=== PATIENT | female | born 1995 | race Caucasian/White ===

== ENCOUNTER 2018-01-25 18:42 | Emergency (ER) | payer MEDICAID ==
[~2018-01-25] VITALS: Ht 5200 cm; Wt 75.0 kg
[~2018-01-25 18:42] MED LIST: MEDR150D9 IM; VALP250C44 PO
[2018-01-25] MEDS ORDERED: CLOZ50TA PO (19:32)
[2018-01-25] MEDS ORDERED: DOCU-148 PO (19:32)
[2018-01-25] MEDS ORDERED: FLUV50TA3 PO (19:32)
[2018-01-25] MEDS ORDERED: LAMO100T89 PO (19:32)
[2018-01-25] MEDS ORDERED: TOPI100T18 PO (19:32)
[2018-01-25 20:44] LABS: URINE HCG NEGATIVE (NEG)
[2018-01-25 20:50] LABS: CLARITY,URINE CLEAR (Clear); COLOR,URINE YELLOW (Yellow); GLUCOSE, URINE NEGATIVE (Neg); KETONES,URINE NEGATIVE (Neg); LEUKOCYTE ESTERASE ,URINE NEGATIVE (Neg); NITRITES, URINE NEGATIVE (Neg); OCCULT BLOOD,URINE SMALL (Neg); PROTEIN,URINE NEGATIVE (Neg); UROBILINOGEN,URINE 0.2 E.U/dL (0.2-1.0)
[2018-01-25 20:52] LABS: UA COLLECTION TYPE CLN CATCH MIDSTREAM
[2018-01-25 20:55] LABS: URINE AMPHETAMINE SCREEN NEGATIVE (Neg); URINE BARBITUATE SCREEN NEGATIVE (Neg); URINE BENZODIAZEPINES SCREEN NEGATIVE (Neg); URINE CANNABINOID SCREEN NEGATIVE (Neg); URINE COCAINE SCREEN NEGATIVE (Neg); URINE METHADONE SCREEN NEGATIVE (Neg); URINE OPIATE SCREEN NEGATIVE (Neg); URINE PHENCYCLIDINE SCREEN NEGATIVE (Neg)
[2018-01-25 21:04] LABS: BACTERIA,URINE 2+ /HPF (Neg); MUCUS STRANDS NONE SEEN /LPF (Neg); RBC,URINE 0-2 /HPF (0-2); SQUAMOUS EPITHELIAL CELL,UR FEW /LPF (FEW); WBC,URINE 0-4 /HPF (0-4)
[2018-01-25 21:50] LABS: BASOPHILS % (AUTO) 0.1 % (0-1); EOSINOPHILS # (AUTO) 0.2 X10'3 (0-0.9); EOSINOPHILS % (AUTO) 1.3 % (0-6); HEMATOCRIT 39.2 % (35.0-45.0); HEMOGLOBIN 13.6 g/dl (12.0-16.0); LYMPHOCYTES # (AUTO) 2.9 X10'3 (1.1-4.8); LYMPHOCYTES % (AUTO) 21.5 % (21-51); MEAN CORPUSCULAR HEMOGLOBIN 31.5 PG (27.0-31.0); MEAN CORPUSCULAR HGB CONC 34.7 % (33.0-36.5); MEAN CORPUSCULAR VOLUME 90.8 FL (78-98); MONOCYTES # (AUTO) 0.9 X10'3 (0-0.9); MONOCYTES % (AUTO) 6.8 % (2-12); NEUTROPHILS # (AUTO) 9.6 X10'3 (1.8-7.7); NEUTROPHILS % (AUTO) 70.3 % (42-75); PLATELET COUNT 247 X10'3 (140-440); RED BLOOD COUNT 4.31 X10'6 (4.20-5.60); RED CELL DISTRIBUTION WIDTH 13.1 % (11.5-14.5); WHITE BLOOD COUNT 13.7 X10'3 (4.5-11.0)
[2018-01-25 22:16] LABS: ALANINE AMINOTRANSFERASE 29 U/L (12-78); ALBUMIN 3.6 G/DL (3.4-5.0); ALBUMIN/GLOBULIN RATIO 0.9 (1.1-1.5); ALKALINE PHOSPHATASE 128 IU/L (46-116); ANION GAP 12 (8-16); ASPARTATE AMINO TRANSFERASE 16 U/L (10-37); BILIRUBIN,TOTAL 0.2 MG/DL (0.1-1.0); BLOOD UREA NITROGEN 17 MG/DL (7-18); BUN/CREATININE RATIO 18.3 (6.6-38.0); CHLORIDE 108 MMOL/L (99-107); CREATININE 0.93 MG/DL (0.40-0.90); GLUCOSE 98 MG/DL (70-104); POTASSIUM 3.7 MMOL/L (3.5-5.1); SODIUM 143 MMOL/L (135-145); TOTAL CARBON DIOXIDE 22.9 MMOL/L (24-32); TOTAL PROTEIN 7.5 G/DL (6.4-8.2); eGFR 75 ML/MIN
[2018-01-25] MEDS: docusate sod 100mg capsule PO SCH (22:24)
[2018-01-25] MEDS: lamoTRIgine 100mg tablet PO SCH (22:24)
[2018-01-25] MEDS: LORazepam 1 MG tablet PO PRN (22:24)
[2018-01-25] MEDS: fluvoxamine 25 MG tablet PO SCH (22:24)
[2018-01-25] MEDS: topiramate 100mg tablet PO SCH (22:28)
[2018-01-26] MEDS: clozapine 100mg tablet PO SCH ×2 (08:46→21:12)
[2018-01-26] MEDS: lamoTRIgine 100mg tablet PO SCH ×2 (08:46→21:12)
[2018-01-26] MEDS: docusate sod 100mg capsule PO SCH ×2 (08:46→21:12)
[2018-01-26] MEDS: topiramate 100mg tablet PO SCH ×2 (08:50→21:12)
[2018-01-26] MEDS: LORazepam 1 MG tablet PO PRN (16:39)
[2018-01-26] MEDS: fluvoxamine 25 MG tablet PO SCH (21:12)
[2018-01-27] MEDS: topiramate 100mg tablet PO SCH ×2 (08:08→20:08)
[2018-01-27] MEDS: docusate sod 100mg capsule PO SCH ×2 (08:08→20:08)
[2018-01-27] MEDS: clozapine 100mg tablet PO SCH ×2 (08:08→20:07)
[2018-01-27] MEDS: lamoTRIgine 100mg tablet PO SCH ×2 (08:08→20:08)
[2018-01-27] MEDS: fluvoxamine 25 MG tablet PO SCH (20:08)
[2018-01-28] MEDS: lamoTRIgine 100mg tablet PO SCH ×2 (08:58→20:20)
[2018-01-28] MEDS: topiramate 100mg tablet PO SCH ×2 (08:58→20:20)
[2018-01-28] MEDS: docusate sod 100mg capsule PO SCH ×2 (08:58→20:20)
[2018-01-28] MEDS: clozapine 100mg tablet PO SCH ×2 (09:49→20:20)
[2018-01-28] MEDS: LORazepam 1 MG tablet PO PRN (16:50)
[2018-01-28] MEDS: fluvoxamine 25 MG tablet PO SCH (20:20)
[2018-01-29] MEDS: docusate sod 100mg capsule PO SCH ×2 (08:39→20:52)
[2018-01-29] MEDS: topiramate 100mg tablet PO SCH ×2 (08:39→20:53)
[2018-01-29] MEDS: clozapine 100mg tablet PO SCH ×2 (08:39→20:52)
[2018-01-29] MEDS: lamoTRIgine 100mg tablet PO SCH ×2 (08:40→20:52)
[2018-01-29] MEDS: fluvoxamine 25 MG tablet PO SCH (20:53)
[2018-01-30] MEDS: topiramate 100mg tablet PO SCH ×2 (08:41→20:42)
[2018-01-30] MEDS: clozapine 100mg tablet PO SCH ×2 (08:41→20:41)
[2018-01-30] MEDS: docusate sod 100mg capsule PO SCH ×2 (08:41→20:41)
[2018-01-30] MEDS: lamoTRIgine 100mg tablet PO SCH ×2 (08:41→20:41)
[2018-01-30] MEDS: fluvoxamine 25 MG tablet PO SCH (20:42)
[2018-01-31] MEDS: docusate sod 100mg capsule PO SCH ×2 (08:22→20:31)
[2018-01-31] MEDS: clozapine 100mg tablet PO SCH ×2 (08:22→20:50)
[2018-01-31] MEDS: lamoTRIgine 100mg tablet PO SCH ×2 (08:22→20:31)
[2018-01-31] MEDS: topiramate 100mg tablet PO SCH ×2 (08:22→20:51)
[2018-01-31] MEDS: LORazepam 1 MG tablet PO PRN (16:35)
[2018-01-31] MEDS: fluvoxamine 25 MG tablet PO SCH (20:31)
[2018-02-01] MEDS: docusate sod 100mg capsule PO SCH ×2 (08:35→19:43)
[2018-02-01] MEDS: lamoTRIgine 100mg tablet PO SCH ×2 (08:35→19:43)
[2018-02-01] MEDS: topiramate 100mg tablet PO SCH ×2 (08:35→19:44)
[2018-02-01] MEDS: clozapine 100mg tablet PO SCH ×2 (08:35→19:43)
[2018-02-01] MEDS: LORazepam 1 MG tablet PO PRN (13:10)
[2018-02-01 16:44] VITALS: BP 118/80
[2018-02-01] MEDS: fluvoxamine 25 MG tablet PO SCH (19:44)
== END 2018-02-01 21:44 ==
LOC: ER 18:43
DX: R45.851 Suicidal ideations (principal); F31.9 Bipolar disorder, unspecified; Z56.0 Unemployment, unspecified; Z79.899 Other long term (current) drug therapy
CPT/HCPCS: 36415; 80053; 80305; 81001; 81025; 84443; 85025; 99285

== ENCOUNTER 2020-01-05 13:24 | Inpatient (IN) | payer MEDICAID ==
[~2020-01-05] VITALS: Ht 160 cm; Wt 70.8 kg
[~2020-01-05 13:24] MED LIST changes: +CLOZ50TA PO; +DOCU-148 PO; +FLUV50TA3 PO; +LAMO100T PO; -MEDR150D9 IM; +TOP100T PO; -VALP250C44 PO
[2020-01-05] MEDS ORDERED: magnesium hydroxide 30ml (MOM) UD suspension PO PRN (17:35)
[2020-01-05] MEDS ORDERED: acetaminophen 325mg tablet PO PRN ×2 (17:35)
[2020-01-05] MEDS ORDERED: traZODone 50mg tablet PO PRN (17:35)
[2020-01-05] MEDS ORDERED: loperamide 2mg capsule PO PRN (17:35)
[2020-01-05] MEDS ORDERED: mag hydrox/Alum hydrox/simeth 30ml oral suspension PO PRN (17:35)
[2020-01-06] MEDS ORDERED: LORazepam 1 MG tablet PO PRN (16:35)
[2020-01-06] MEDS ORDERED: traZODone 50mg tablet PO PRN (16:35)
[2020-01-06] MEDS ORDERED: loperamide 2mg capsule PO PRN (16:35)
[2020-01-06 17:34] VITALS: BP 120/77
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
[2020-01-06 20:00] VITALS: BP 125/80
[2020-01-06] MEDS ORDERED: LEVO50TA PO (20:18)
[2020-01-06] MEDS ORDERED: OLAN10TA19 PO (20:18)
[2020-01-06] MEDS ORDERED: BUPR-94 PO (20:18)
[2020-01-06] MEDS ORDERED: OXYB5TAB16 PO (20:18)
[2020-01-06] MEDS ORDERED: BUSP5TAB3 PO (20:19)
[2020-01-06] MEDS ORDERED: IBUP-1984 PO (20:19)
[2020-01-06] MEDS ORDERED: LAMO200T10 PO (20:19)
[2020-01-06] MEDS ORDERED: CHOL200077 PO (20:19)
[2020-01-06] MEDS ORDERED: CLOZ100T31 PO ×2 (20:19)
[2020-01-06] MEDS ORDERED: buPROPion SR 150mg tablet PO SCH (20:42)
[2020-01-06] MEDS ORDERED: olanzapine 10mg tablet PO SCH (21:00)
[2020-01-06] MEDS ORDERED: clozapine 100mg tablet PO SCH (21:00)
[2020-01-06] MEDS ORDERED: lamoTRIgine 100mg tablet PO SCH (21:14)
[2020-01-06] MEDS ORDERED: OLAN10TA3 PO (21:27)
[2020-01-06] MEDS ORDERED: CLOZ100T PO (21:27)
[2020-01-06] MEDS ORDERED: TRAZ-251 PO (21:27)
[2020-01-06] MEDS ORDERED: OLAN15TA3 PO (21:27)
[2020-01-06] MEDS ORDERED: CLON-528 PO (21:27)
[2020-01-06] MEDS ORDERED: CITA20TA19 PO (21:27)
[2020-01-06] MEDS ORDERED: traZODone 50mg tablet PO SCH (21:54)
[2020-01-06] MEDS: topiramate 100mg tablet PO SCH (23:04)
[2020-01-06] MEDS: busPIRone 5mg tablet PO SCH (23:05)
[2020-01-06] MEDS: oxybutynin 5mg tablet PO SCH (23:05)
[2020-01-06] MEDS: clozapine 100mg tablet PO SCH (23:05)
[2020-01-06] MEDS: olanzapine 10mg tablet PO SCH (23:06)
[2020-01-06] MEDS: clonazePAM 0.5mg tablet PO SCH (23:06)
[2020-01-06] MEDS: citalopram 20mg tablet PO SCH (23:06)
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
[2020-01-07] MEDS: ibuprofen tablet 400 MG TABLET PO PRN (03:43)
[2020-01-07 07:09] LABS: CHOLESTEROL 135 MG/DL (0-200); HDL CHOLESTEROL 34 MG/DL (35-60); LDL CHOLESTEROL 96 MG/DL (50-100); TRIGLYCERIDES 66 MG/DL (20-135)
[2020-01-07 07:11] LABS: HEMOGLOBIN A1C 4.8 % (4.5-6.2)
[2020-01-07] MEDS: vitamin D (cholecalciferol) 1,000 unit tablet PO SCH (07:42)
[2020-01-07] MEDS: levoTHYROXINE 25mcg tablet PO SCH (07:42)
[2020-01-07] MEDS: topiramate 100mg tablet PO SCH (07:42)
[2020-01-07] MEDS: clonazePAM 0.5mg tablet PO SCH ×2 (07:42→21:32)
[2020-01-07] MEDS: busPIRone 5mg tablet PO SCH ×3 (07:42→21:33)
[2020-01-07] MEDS: docusate sod 100mg capsule PO SCH ×2 (07:42→21:33)
[2020-01-07] MEDS: lamoTRIgine 100mg tablet PO SCH ×2 (07:43→21:33)
[2020-01-07 08:00] VITALS: BP 112/64
[2020-01-07] MEDS ORDERED: QUEtiapine 25mg tablet PO SCH (08:00)
[2020-01-07] MEDS ORDERED: olanzapine 10mg tablet PO SCH (08:00)
[2020-01-07] MEDS ORDERED: clozapine 100mg tablet PO SCH (08:00)
[2020-01-07] MEDS ORDERED: pneumococcal 23-VAL P-sac vacc 25 mcg/0.5ml vial IMVAC ONE (10:00)
[2020-01-07] MEDS ORDERED: NICOTINE POLACRILEX 4 MG LOZENGE BC PRN (11:55)
[2020-01-07] MEDS ORDERED: nicotine 21mg patch - 24 hr TD ONE (12:00)
[2020-01-07] MEDS ORDERED: benztropine 1mg tablet PO ONE (12:00)
[2020-01-07] MEDS: clozapine 25mg tablet PO SCH ×2 (12:31→17:16)
[2020-01-07] MEDS: NICOTINE POLACRILEX 2 MG LOZENGE BC PRN ×2 (15:00→21:34)
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
--- NOTE | 2020-01-07 17:08 | NUR ---
Assessment Met w/pt engaged pt in completing psycho-social & activity assessments. Pt signed MELANIE, GEORGIE (#[id number]). Lola Galvan, CENTRIFUGAL CHILLER TECHNICIAN Addendum: 01/07/20 at 1709 by Lola Galvan SS Amended: Links added.
[2020-01-07] MEDS: LORazepam 1 MG tablet PO PRN (18:15)
[2020-01-07 19:00] VITALS: BP 127/69
[2020-01-07] MEDS: citalopram 20mg tablet PO SCH (21:32)
[2020-01-07] MEDS: clozapine 100mg tablet PO SCH (21:33)
[2020-01-07] MEDS: olanzapine 10mg tablet PO SCH (21:33)
[2020-01-07] MEDS: benztropine 1mg tablet PO SCH (21:33)
[2020-01-07] MEDS: oxybutynin 5mg tablet PO SCH (21:34)
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
[2020-01-08 06:51] LABS: BASOPHILS % (AUTO) 0.2 % (0-1); EOSINOPHILS % (AUTO) 0.1 % (0-6); HEMATOCRIT 36.9 % (35.0-45.0); HEMOGLOBIN 12.8 g/dl (12.0-16.0); LYMPHOCYTES # (AUTO) 2.6 X10'3 (1.1-4.8); LYMPHOCYTES % (AUTO) 19.7 % (21-51); MEAN CORPUSCULAR HEMOGLOBIN 32.2 PG (27.0-31.0); MEAN CORPUSCULAR HGB CONC 34.6 g/dL (33.0-36.5); MEAN CORPUSCULAR VOLUME 93.1 FL (78-98); MEAN PLATELET VOLUME 7.4 FL (7.4-10.4); MONOCYTES % (AUTO) 7.4 % (2-12); NEUTROPHILS # (AUTO) 9.8 X10'3 (1.8-7.7); NEUTROPHILS % (AUTO) 72.6 % (42-75); PLATELET COUNT 249 X10'3 (140-440); RED BLOOD COUNT 3.97 X10'6 (4.20-5.60); RED CELL DISTRIBUTION WIDTH 12.7 % (11.5-14.5); WHITE BLOOD COUNT 13.4 X10'3 (4.5-11.0)
[2020-01-08 07:05] LABS: ALANINE AMINOTRANSFERASE 23 U/L (12-78); ALBUMIN 3.5 G/DL (3.4-5.0); ALBUMIN/GLOBULIN RATIO 0.9 (1.1-1.5); ALKALINE PHOSPHATASE 85 IU/L (46-116); ANION GAP 11 (8-16); ASPARTATE AMINO TRANSFERASE 16 U/L (10-37); BILIRUBIN,TOTAL 0.2 MG/DL (0.1-1.0); BLOOD UREA NITROGEN 14 MG/DL (7-18); BUN/CREATININE RATIO 15.7 (6.6-38.0); CHLORIDE 108 MMOL/L (99-107); CREATININE 0.89 MG/DL (0.40-0.90); GLUCOSE 97 MG/DL (70-104); POTASSIUM 3.7 MMOL/L (3.5-5.1); SODIUM 143 MMOL/L (135-145); TOTAL CARBON DIOXIDE 24.2 MMOL/L (24-32); TOTAL PROTEIN 7.3 G/DL (6.4-8.2); eGFR 77 ML/MIN
[2020-01-08] MEDS: benztropine 1mg tablet PO SCH ×2 (07:09→20:45)
[2020-01-08] MEDS: lamoTRIgine 100mg tablet PO SCH ×2 (07:09→20:46)
[2020-01-08] MEDS: levoTHYROXINE 25mcg tablet PO SCH (07:09)
[2020-01-08] MEDS: clonazePAM 0.5mg tablet PO SCH ×2 (07:09→20:46)
[2020-01-08] MEDS: clozapine 25mg tablet PO SCH ×3 (07:09→17:07)
[2020-01-08] MEDS: busPIRone 5mg tablet PO SCH ×3 (07:10→20:45)
[2020-01-08] MEDS: vitamin D (cholecalciferol) 1,000 unit tablet PO SCH (07:10)
[2020-01-08] MEDS: magnesium hydroxide 30ml (MOM) UD suspension PO PRN (07:10)
[2020-01-08] MEDS: docusate sod 100mg capsule PO SCH ×2 (07:10→20:45)
[2020-01-08] MEDS: acetaminophen 325mg tablet PO PRN (07:11)
[2020-01-08] MEDS: nicotine 21mg patch - 24 hr TD SCH (07:32)
[2020-01-08 08:00] VITALS: BP 116/67
[2020-01-08] MEDS: NICOTINE POLACRILEX 2 MG LOZENGE BC PRN (13:08)
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
[2020-01-08 19:00] VITALS: BP 118/74
[2020-01-08] MEDS: ibuprofen tablet 400 MG TABLET PO PRN (19:04)
[2020-01-08] MEDS: oxybutynin 5mg tablet PO SCH (20:45)
[2020-01-08] MEDS: olanzapine 10mg tablet PO SCH (20:45)
[2020-01-08] MEDS: citalopram 20mg tablet PO SCH (20:46)
[2020-01-08] MEDS: clozapine 100mg tablet PO SCH (20:48)
--- NOTE | 2020-01-08 21:06 | NUR ---
Nicotine patch removed per pt request r/t nausea. She asked patch be discontinued.
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
[2020-01-09] MEDS: ibuprofen tablet 400 MG TABLET PO PRN (05:51)
[2020-01-09 07:44] VITALS: BP 120/72
[2020-01-09] MEDS: nicotine 21mg patch - 24 hr TD SCH (08:00)
[2020-01-09] MEDS: magnesium hydroxide 30ml (MOM) UD suspension PO PRN (08:03)
[2020-01-09] MEDS: clozapine 25mg tablet PO SCH ×3 (08:04→17:58)
[2020-01-09] MEDS: benztropine 1mg tablet PO SCH ×2 (08:04→20:26)
[2020-01-09] MEDS: levoTHYROXINE 25mcg tablet PO SCH (08:04)
[2020-01-09] MEDS: lamoTRIgine 100mg tablet PO SCH ×2 (08:04→20:27)
[2020-01-09] MEDS: vitamin D (cholecalciferol) 1,000 unit tablet PO SCH (08:04)
[2020-01-09] MEDS: clonazePAM 0.5mg tablet PO SCH ×2 (08:04→20:27)
[2020-01-09] MEDS: busPIRone 5mg tablet PO SCH ×3 (08:04→20:27)
[2020-01-09] MEDS: docusate sod 100mg capsule PO SCH ×2 (08:04→20:27)
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
[2020-01-09 19:00] VITALS: BP 129/82
[2020-01-09] MEDS: acetaminophen 325mg tablet PO PRN (19:18)
[2020-01-09] MEDS: oseltamivir phos 75mg capsule PO SCH (20:26)
[2020-01-09] MEDS: olanzapine 10mg tablet PO SCH (20:26)
[2020-01-09] MEDS: clozapine 100mg tablet PO SCH (20:26)
[2020-01-09] MEDS: oxybutynin 5mg tablet PO SCH (20:27)
[2020-01-09] MEDS: citalopram 20mg tablet PO SCH (20:27)
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
[2020-01-10] MEDS: acetaminophen 325mg tablet PO PRN ×2 (05:46→21:13)
[2020-01-10] MEDS: lamoTRIgine 100mg tablet PO SCH ×2 (07:40→20:25)
[2020-01-10] MEDS: clonazePAM 0.5mg tablet PO SCH ×2 (07:40→20:23)
[2020-01-10] MEDS: docusate sod 100mg capsule PO SCH ×2 (07:40→20:22)
[2020-01-10] MEDS: vitamin D (cholecalciferol) 1,000 unit tablet PO SCH (07:40)
[2020-01-10] MEDS: oseltamivir phos 75mg capsule PO SCH ×2 (07:40→20:23)
[2020-01-10] MEDS: busPIRone 5mg tablet PO SCH ×3 (07:41→20:23)
[2020-01-10] MEDS: benztropine 1mg tablet PO SCH ×2 (07:41→20:22)
[2020-01-10] MEDS: clozapine 25mg tablet PO SCH ×3 (07:41→17:51)
[2020-01-10] MEDS: levoTHYROXINE 25mcg tablet PO SCH (07:42)
[2020-01-10 08:00] VITALS: BP 111/72
[2020-01-10] MEDS: nicotine 21mg patch - 24 hr TD SCH (08:00)
[2020-01-10] MEDS: LORazepam 1 MG tablet PO PRN (11:30)
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
[2020-01-10] MEDS ORDERED: magnesium citrate 296ml oral solution PO ONE (16:55)
[2020-01-10] MEDS: clozapine 100mg tablet PO SCH (20:22)
[2020-01-10] MEDS: citalopram 20mg tablet PO SCH (20:23)
[2020-01-10] MEDS: olanzapine 10mg tablet PO SCH (20:24)
[2020-01-10] MEDS: oxybutynin 5mg tablet PO SCH (20:25)
[2020-01-10 20:52] VITALS: BP 126/84
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
[2020-01-11] MEDS: acetaminophen 325mg tablet PO PRN ×2 (05:03→08:14)
[2020-01-11 07:54] VITALS: BP 121/73
[2020-01-11] MEDS: nicotine 21mg patch - 24 hr TD SCH (08:00)
[2020-01-11] MEDS: benztropine 1mg tablet PO SCH ×2 (08:05→20:48)
[2020-01-11] MEDS: clonazePAM 0.5mg tablet PO SCH ×2 (08:05→20:48)
[2020-01-11] MEDS: clozapine 25mg tablet PO SCH ×3 (08:05→17:00)
[2020-01-11] MEDS: docusate sod 100mg capsule PO SCH ×2 (08:05→20:48)
[2020-01-11] MEDS: busPIRone 5mg tablet PO SCH ×3 (08:05→20:49)
[2020-01-11] MEDS: vitamin D (cholecalciferol) 1,000 unit tablet PO SCH (08:06)
[2020-01-11] MEDS: levoTHYROXINE 25mcg tablet PO SCH (08:06)
[2020-01-11] MEDS: oseltamivir phos 75mg capsule PO SCH ×2 (08:06→20:49)
[2020-01-11] MEDS: lamoTRIgine 100mg tablet PO SCH ×2 (08:06→20:50)
--- NOTE | 2020-01-11 10:45 | NUR ---
DCP-Placement Presenting Issues: Pt lost placement @ [facility] last week, waiting for new placement. Interventions: SS had t/c with [facility] Patient Anesthesiologist Attending, Gabriela Kim per t/c SS faxed packet to [facility] office to facilitate placement services, [facility] are planning to provide referrals to [facility]. Plan: will continue to collaborate with [facility] to coordinate DCP for pt. Lola Galvan LCSW Addendum: 01/11/20 at 1054 by Lola Galvan Amended: Links added.
--- NOTE | 2020-01-11 15:01 | NUR ---
Initial: Pt admit w/ schizoaffective disorder from care facility. Hx LPS conserved per EMR. Positive for influenza A. PO at least 75% avg regular diet meeting needs. LBM 01/07. No nutrition concerns at this time. Will continue to monitor. Rec: 1. continue regular diet 2. bowel care as needed 3. wt per rx Addendum: 01/11/20 at [address] Amended: Links added.
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
[2020-01-11] MEDS ORDERED: magnesium citrate 296ml oral solution PO ONE (18:10)
[2020-01-11 20:27] VITALS: BP 128/79
[2020-01-11] MEDS: citalopram 20mg tablet PO SCH (20:49)
[2020-01-11] MEDS: olanzapine 10mg tablet PO SCH (20:50)
[2020-01-11] MEDS: oxybutynin 5mg tablet PO SCH (20:50)
[2020-01-11] MEDS: clozapine 100mg tablet PO SCH (20:50)
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
[2020-01-12] MEDS: acetaminophen 325mg tablet PO PRN ×2 (05:47→16:37)
[2020-01-12 08:00] VITALS: BP 96/57
[2020-01-12] MEDS: nicotine 21mg patch - 24 hr TD SCH (08:00)
[2020-01-12] MEDS: levoTHYROXINE 25mcg tablet PO SCH (08:04)
[2020-01-12] MEDS: clozapine 25mg tablet PO SCH ×3 (08:04→17:57)
[2020-01-12] MEDS: docusate sod 100mg capsule PO SCH ×2 (08:04→20:31)
[2020-01-12] MEDS: benztropine 1mg tablet PO SCH ×2 (08:04→20:30)
[2020-01-12] MEDS: clonazePAM 0.5mg tablet PO SCH ×2 (08:04→20:30)
[2020-01-12] MEDS: oseltamivir phos 75mg capsule PO SCH ×2 (08:04→20:27)
[2020-01-12] MEDS: lamoTRIgine 100mg tablet PO SCH ×2 (08:04→20:31)
[2020-01-12] MEDS: busPIRone 5mg tablet PO SCH ×3 (08:05→20:30)
[2020-01-12] MEDS: vitamin D (cholecalciferol) 1,000 unit tablet PO SCH (08:05)
[2020-01-12] MEDS ORDERED: bisacodyl 5mg tablet.DR PO ONE (09:10)
--- NOTE | 2020-01-12 09:18 | NUR ---
Late Note for contact made on 01/11/20 1:1-Distress Tolerance Presenting Issues: Pt tested positive for Influenza A over the weekend and is now in isolation. Pt has poor impulse management which is exacerbated by low tolerance for distress and poor emotional regulation. Interventions: SS met w/pt @ bedside, provided 1:1 interventions via DBT Distress Tolerance Strategies to encourage & support pt's verbalizing & processing her thoughts & emotions associated with hospitalization, isolation & conservatorship. Per session, pt verbalized her thoughts associated with being in isolation, difficulties getting off of conservatorship; pt talked about missing her family (dad & sister-living @ [facility]), pt has not seen them for sometime now. Pt also disclosed feeling disappointed with herself because "I can't seem to get better". SS engaged pt in defining "better", pt's reports, "I'd be off conservatorship" however, pt has limited understanding of how to support herself on her own. SS validated & normalized pt's emotional experiences and engaged pt in taking an inventory of her current coping skills, pt acknowledged that she has a stress ball which helps when she feels angry & frustrated with others, slime which helps when she feels upset with herself, pt also reports that coloring and drawing helps her head to quiet down and help her not think about problems too much, "but I don't have the art or coloring books now". Per session pt reports feeling better about her current situation and is ok about conservatorship for now. SS provided some mandala coloring pages & crayon. Plan: SS will continue to provide 1:1 psychotherapeutic support to increase pt's tolerance for daily distress. Lola Galvan LCSW Addendum: 01/12/20 at 1027 by Lola COUCH Amended: Links added.
--- NOTE | 2020-01-12 10:38 | NUR ---
1:1-CBT Presenting Issues: Pt's still in isolation undergoing treatment for Influenza; pt is normally very social and does not isolate herself. Interventions: SS met w/pt and engaged pt in CBT interventions to assess pt's stress level. Per session, pt reports that she's bored but that she understands that the isolation is only temporary. Pt has been coloring the mandSoundHound pages SS provided yesterday, pt requested for additional art materials. Per session, pt appears to be adjusting to isolation well at this time, utilizing stress relief tools & engaging to in coloring to distract her thoughts. Plan: SS will continue to provide 1:1 support. Lola Galvan LCSW Addendum: 01/12/20 at 1135 by Lola Galvan Amended: Links added.
--- NOTE | 2020-01-12 11:54 | NUR ---
CM-Placement Presenting Issues: Pt's [facility] placement [facility]. Interventions: SS had t/c with [facility] office to get update re pt's placement services. Per t/c, pt's packet sent to [facility]. Plan: SS will continue to engage [facility] in dcp activities. Lola Galvan PARTITION ASSEMBLER Addendum: 01/12/20 at 1203 by Lola Galvan Amended: Links added.
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
[2020-01-12 19:48] VITALS: BP 141/80
[2020-01-12] MEDS: olanzapine 10mg tablet PO SCH (20:28)
[2020-01-12] MEDS: clozapine 100mg tablet PO SCH (20:30)
[2020-01-12] MEDS: oxybutynin 5mg tablet PO SCH (20:31)
[2020-01-12] MEDS: citalopram 20mg tablet PO SCH (20:32)
[2020-01-12] MEDS: bisacodyl 10mg suppository rectal RC PRN (21:09)
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
[2020-01-13] MEDS: nicotine 21mg patch - 24 hr TD SCH (08:00)
[2020-01-13] MEDS: lamoTRIgine 100mg tablet PO SCH ×2 (08:20→20:31)
[2020-01-13] MEDS: clozapine 25mg tablet PO SCH ×3 (08:20→17:33)
[2020-01-13] MEDS: benztropine 1mg tablet PO SCH ×2 (08:21→20:31)
[2020-01-13] MEDS: oseltamivir phos 75mg capsule PO SCH ×2 (08:21→20:30)
[2020-01-13] MEDS: levoTHYROXINE 25mcg tablet PO SCH (08:21)
[2020-01-13] MEDS: vitamin D (cholecalciferol) 1,000 unit tablet PO SCH (08:21)
[2020-01-13] MEDS: docusate sod 100mg capsule PO SCH ×2 (08:22→20:31)
[2020-01-13] MEDS: busPIRone 5mg tablet PO SCH ×3 (08:22→20:32)
[2020-01-13] MEDS: clonazePAM 0.5mg tablet PO SCH ×2 (08:22→20:28)
[2020-01-13 08:49] VITALS: BP 98/60
[2020-01-13] MEDS: acetaminophen 325mg tablet PO PRN (14:18)
--- NOTE | 2020-01-13 14:29 | NUR ---
1:1-CBT Presenting Issues: Pt's been in isolation due to +Influenza, has lost placement in [place] due poor emotional regulation when pt encounter experiences that upsets her. Interventions: SS met w/pt @ bedside, engaged her in CBT activities to review & practice adaptive behavioral coping skills & to process her frustration due to having to stay in her room. Pt expressed desire for placement @ [facility], SS engaged pt in discussion to identify the challenges of her being able to maintain placement and what she would do differently today if presented with a similar situation. Pt also verbalize feeling bored, and wants to engage in some art work, SS provide some blank paper & water colors for pt to use. Plan: 1:1 to continue to increase pt's capacity to tolerate daily distress. Lola Galvan LCSW Addendum: 01/13/20 at 1528 by Lola COUCH Amended: Links added.
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
[2020-01-13 19:19] VITALS: BP_SYST 117; BP_SYST 139; BP_DIAS 64; BP_DIAS 79
[2020-01-13] MEDS: clozapine 100mg tablet PO SCH (20:28)
[2020-01-13] MEDS: olanzapine 10mg tablet PO SCH (20:30)
[2020-01-13] MEDS: citalopram 20mg tablet PO SCH (20:31)
[2020-01-13] MEDS: oxybutynin 5mg tablet PO SCH (20:34)
[2020-01-13 21:32] LABS: URINE HCG NEGATIVE (NEG)
--- NOTE | 2020-01-13 22:19 | NUR ---
Pt reports still no BM, Lana RN assessed pt and pts abdomen is firm and slightly distended, bowel sounds were hypoactive, pt denies nausea or abdominal pain, contacted Dr Loo, verbal order to do digital exam to assess for impaction and if patient is gave order to manually disimpact if needed, also order for glycerin suppository given.
--- NOTE | 2020-01-13 22:41 | NUR ---
Digital exam done, no stool felt, glycerine suppository administered, will continue to monitor.
[2020-01-13] MEDS: glycerin ADULT rectal suppository RC PRN (22:43)
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
[2020-01-14] MEDS: busPIRone 5mg tablet PO SCH ×3 (07:54→20:59)
[2020-01-14] MEDS: oseltamivir phos 75mg capsule PO SCH ×2 (07:54→20:59)
[2020-01-14] MEDS: benztropine 1mg tablet PO SCH ×2 (07:54→20:59)
[2020-01-14] MEDS: clonazePAM 0.5mg tablet PO SCH ×2 (07:54→20:59)
[2020-01-14] MEDS: docusate sod 100mg capsule PO SCH ×2 (07:54→20:59)
[2020-01-14] MEDS: clozapine 25mg tablet PO SCH ×3 (07:54→16:59)
[2020-01-14] MEDS: lamoTRIgine 100mg tablet PO SCH ×2 (07:54→20:59)
[2020-01-14] MEDS: nicotine 21mg patch - 24 hr TD SCH (07:55)
[2020-01-14] MEDS: vitamin D (cholecalciferol) 1,000 unit tablet PO SCH (07:55)
[2020-01-14] MEDS: levoTHYROXINE 25mcg tablet PO SCH (07:55)
[2020-01-14 08:12] VITALS: BP 105/66
--- NOTE | 2020-01-14 15:58 | NUR ---
1:1-CBT Presenting Issues: Pt's in isolation and receiving medication treatment for Influenza A. Pt is handling isolation well, is reported to be bored and restless but accepts redirections well. Pt struggles to regulate emotional responses in the moment when she experiences emotional flooding, in such situations pt often react via fight/flight, these Interventions: SS met w/pt @ bedside, provided support via CBT and encouraged pt to practice adaptive behavioral coping strategies. SS also provided additional art tools to support pt in coping with having to be in isolation. Plan: SS will continue 1:1 support. Lola Galvan LCSW Addendum: 01/14/20 at 1631 by Lola Galvan Amended: Links added.
[2020-01-14] MEDS: acetaminophen 325mg tablet PO PRN ×2 (16:00→19:55)
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
[2020-01-14 20:05] VITALS: BP 118/78
[2020-01-14] MEDS: olanzapine 10mg tablet PO SCH (20:59)
[2020-01-14] MEDS: clozapine 100mg tablet PO SCH (20:59)
[2020-01-14] MEDS: citalopram 20mg tablet PO SCH (20:59)
[2020-01-14] MEDS: oxybutynin 5mg tablet PO SCH (20:59)
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
[2020-01-15] MEDS: acetaminophen 325mg tablet PO PRN ×3 (03:42→18:59)
[2020-01-15 07:23] VITALS: BP 136/80
[2020-01-15] MEDS: docusate sod 100mg capsule PO SCH ×2 (07:33→20:52)
[2020-01-15] MEDS: lamoTRIgine 100mg tablet PO SCH ×2 (07:33→20:52)
[2020-01-15] MEDS: clozapine 25mg tablet PO SCH ×3 (07:33→17:12)
[2020-01-15] MEDS: oseltamivir phos 75mg capsule PO SCH ×2 (07:33→20:52)
[2020-01-15] MEDS: busPIRone 5mg tablet PO SCH ×3 (07:33→20:52)
[2020-01-15] MEDS: vitamin D (cholecalciferol) 1,000 unit tablet PO SCH (07:34)
[2020-01-15] MEDS: benztropine 1mg tablet PO SCH ×2 (07:34→20:52)
[2020-01-15] MEDS: clonazePAM 0.5mg tablet PO SCH ×2 (07:34→20:52)
[2020-01-15] MEDS: nicotine 21mg patch - 24 hr TD SCH (07:34)
[2020-01-15] MEDS: levoTHYROXINE 25mcg tablet PO SCH (07:44)
[2020-01-15] MEDS: lactulose 20gm/30ml cup PO PRN (14:33)
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
[2020-01-15 19:36] VITALS: BP 125/77
[2020-01-15] MEDS: olanzapine 10mg tablet PO SCH (20:51)
[2020-01-15] MEDS: oxybutynin 5mg tablet PO SCH (20:52)
[2020-01-15] MEDS: citalopram 20mg tablet PO SCH (20:52)
[2020-01-15] MEDS: clozapine 100mg tablet PO SCH (20:52)
[2020-01-15] MEDS: magnesium hydroxide 30ml (MOM) UD suspension PO PRN (21:33)
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
[2020-01-16] MEDS: ibuprofen tablet 400 MG TABLET PO PRN ×3 (02:11→22:37)
[2020-01-16] MEDS: nicotine 21mg patch - 24 hr TD SCH (08:03)
[2020-01-16] MEDS: busPIRone 5mg tablet PO SCH ×3 (08:04→21:02)
[2020-01-16] MEDS: docusate sod 100mg capsule PO SCH (08:04)
[2020-01-16] MEDS: benztropine 1mg tablet PO SCH ×2 (08:04→21:01)
[2020-01-16] MEDS: oseltamivir phos 75mg capsule PO SCH ×2 (08:04→21:01)
[2020-01-16] MEDS: levoTHYROXINE 25mcg tablet PO SCH (08:04)
[2020-01-16] MEDS: lamoTRIgine 100mg tablet PO SCH ×2 (08:04→21:01)
[2020-01-16] MEDS: vitamin D (cholecalciferol) 1,000 unit tablet PO SCH (08:04)
[2020-01-16] MEDS: clonazePAM 0.5mg tablet PO SCH ×2 (08:04→21:01)
[2020-01-16] MEDS: clozapine 25mg tablet PO SCH ×3 (08:05→16:21)
[2020-01-16] MEDS: lactulose 20gm/30ml cup PO PRN (08:05)
[2020-01-16 08:50] VITALS: BP 114/73
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
[2020-01-16] MEDS ORDERED: magnesium citrate 296ml oral solution PO ONE ×2 (12:05→19:15)
[2020-01-16] MEDS: glycerin ADULT rectal suppository RC PRN (13:33)
[2020-01-16] MEDS: bisacodyl 10mg suppository rectal RC PRN (13:34)
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
[2020-01-16] MEDS: acetaminophen 325mg tablet PO PRN (18:04)
[2020-01-16 19:41] VITALS: BP 131/79
[2020-01-16] MEDS: docusate sod 250mg capsule PO SCH (21:01)
[2020-01-16] MEDS: sennosides/docusate sodium tablet PO SCH (21:01)
[2020-01-16] MEDS: citalopram 20mg tablet PO SCH (21:01)
[2020-01-16] MEDS: clozapine 100mg tablet PO SCH (21:02)
[2020-01-16] MEDS: olanzapine 10mg tablet PO SCH (21:02)
[2020-01-16] MEDS: oxybutynin 5mg tablet PO SCH (21:02)
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
[2020-01-17] MEDS: ibuprofen tablet 400 MG TABLET PO PRN ×3 (05:51→20:40)
[2020-01-17 07:38] VITALS: BP 98/52
[2020-01-17] MEDS: vitamin D (cholecalciferol) 1,000 unit tablet PO SCH (07:49)
[2020-01-17] MEDS: docusate sod 250mg capsule PO SCH ×2 (07:49→20:32)
[2020-01-17] MEDS: levoTHYROXINE 25mcg tablet PO SCH (07:49)
[2020-01-17] MEDS: clonazePAM 0.5mg tablet PO SCH ×2 (07:49→20:32)
[2020-01-17] MEDS: lamoTRIgine 100mg tablet PO SCH ×2 (07:49→20:34)
[2020-01-17] MEDS: busPIRone 5mg tablet PO SCH ×3 (07:50→20:33)
[2020-01-17] MEDS: sennosides/docusate sodium tablet PO SCH ×2 (07:50→20:32)
[2020-01-17] MEDS: benztropine 1mg tablet PO SCH ×2 (07:51→20:32)
[2020-01-17] MEDS: clozapine 25mg tablet PO SCH ×3 (07:52→17:09)
[2020-01-17] MEDS: nicotine 21mg patch - 24 hr TD SCH (07:52)
[2020-01-17] MEDS: acetaminophen 325mg tablet PO PRN ×2 (09:16→17:04)
--- NOTE | 2020-01-17 10:30 | NUR ---
Reassessment: Pt PO occasional fluctuation mainly 75-100% avg meals meeting needs. Documented as moderate BM and constipated w/ prior LBM 01/07 though no accurate documentation hx. WHIZZER note reports constipation w/ significant colonic constipation per KUB; pt s/p mag citrate 01/15 receiving routine senna, colace, and PRN: dulcolax, MoM, and lactulose added 01/15. Will continue to monitor. Rec: 1. continue regular diet 2. routine bowel care given constipation 3. wt per rx Addendum: 01/17/20 at [address] Amended: Links added.
--- NOTE | 2020-01-17 13:39 | NUR ---
Isolation: Pt has no flu symptoms. Called Inf control Chirag. Pt taken off of droplet precautions.
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
[2020-01-17 19:12] VITALS: BP 118/76
[2020-01-17] MEDS: citalopram 20mg tablet PO SCH (20:34)
[2020-01-17] MEDS: oxybutynin 5mg tablet PO SCH (20:35)
[2020-01-17] MEDS: clozapine 100mg tablet PO SCH (20:35)
[2020-01-17] MEDS: olanzapine 10mg tablet PO SCH (20:36)
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
[2020-01-18] MEDS: ibuprofen tablet 400 MG TABLET PO PRN ×2 (05:44→19:11)
[2020-01-18 07:23] VITALS: BP 119/74
[2020-01-18] MEDS: docusate sod 250mg capsule PO SCH ×2 (07:41→20:00)
[2020-01-18] MEDS: benztropine 1mg tablet PO SCH ×2 (07:41→21:50)
[2020-01-18] MEDS: busPIRone 5mg tablet PO SCH ×3 (07:41→21:48)
[2020-01-18] MEDS: lamoTRIgine 100mg tablet PO SCH ×2 (07:42→21:49)
[2020-01-18] MEDS: levoTHYROXINE 25mcg tablet PO SCH (07:42)
[2020-01-18] MEDS: vitamin D (cholecalciferol) 1,000 unit tablet PO SCH (07:42)
[2020-01-18] MEDS: sennosides/docusate sodium tablet PO SCH ×2 (07:43→20:00)
[2020-01-18] MEDS: clozapine 25mg tablet PO SCH ×3 (07:43→17:16)
[2020-01-18] MEDS: clonazePAM 0.5mg tablet PO SCH ×2 (07:43→21:54)
[2020-01-18] MEDS: nicotine 21mg patch - 24 hr TD SCH (07:45)
[2020-01-18 07:52] LABS: BASOPHILS % (AUTO) 0.2 % (0-1); EOSINOPHILS % (AUTO) 0.1 % (0-6); HEMATOCRIT 40.5 % (35.0-45.0); HEMOGLOBIN 13.3 g/dl (12.0-16.0); LYMPHOCYTES # (AUTO) 3.5 X10'3 (1.1-4.8); LYMPHOCYTES % (AUTO) 29.5 % (21-51); MEAN CORPUSCULAR HEMOGLOBIN 31.4 PG (27.0-31.0); MEAN CORPUSCULAR HGB CONC 32.9 g/dL (33.0-36.5); MEAN CORPUSCULAR VOLUME 95.4 FL (78-98); MEAN PLATELET VOLUME 7.3 FL (7.4-10.4); MONOCYTES # (AUTO) 0.8 X10'3 (0-0.9); MONOCYTES % (AUTO) 6.9 % (2-12); NEUTROPHILS # (AUTO) 7.5 X10'3 (1.8-7.7); NEUTROPHILS % (AUTO) 63.3 % (42-75); PLATELET COUNT 274 X10'3 (140-440); RED BLOOD COUNT 4.25 X10'6 (4.20-5.60); RED CELL DISTRIBUTION WIDTH 12.5 % (11.5-14.5); WHITE BLOOD COUNT 11.9 X10'3 (4.5-11.0)
[2020-01-18] MEDS: mag hydrox/Alum hydrox/simeth 30ml oral suspension PO PRN (09:25)
[2020-01-18] MEDS: acetaminophen 325mg tablet PO PRN (12:19)
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
--- NOTE | 2020-01-18 14:02 | NUR ---
Placement Presenting Issues: Pt's waiting for new placement. Interventions: SS had t/c with [facility]'s office to get updates re placement services/activities for pt. Per t/c pt's packet is out @ [facility]. However, [facility] is not reviewing any new packets as they have halted new admissions until further notice. [facility]'s office requested documentation re pt's completion of treatment for influenza. Current MD & nursing notes faxed to KATT's office. Plan: SS will continue to engage [facility]'s office in dcp activities to facilitate placement services. Lola Galvan LCSW Addendum: 01/18/20 at 1458 by Lola Galvan SS Amended: Links added.
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
[2020-01-18] MEDS ORDERED: magnesium citrate 296ml oral solution PO ONE (16:15)
[2020-01-18 20:46] VITALS: BP 128/68
[2020-01-18] MEDS: citalopram 20mg tablet PO SCH (21:49)
[2020-01-18] MEDS: clozapine 100mg tablet PO SCH (21:49)
[2020-01-18] MEDS: olanzapine 10mg tablet PO SCH (21:50)
[2020-01-18] MEDS: oxybutynin 5mg tablet PO SCH (21:52)
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
[2020-01-19] MEDS: ibuprofen tablet 400 MG TABLET PO PRN ×2 (04:03→13:20)
[2020-01-19 07:00] VITALS: BP 119/69
[2020-01-19] MEDS: benztropine 1mg tablet PO SCH ×2 (07:41→20:04)
[2020-01-19] MEDS: sennosides/docusate sodium tablet PO SCH ×2 (07:41→20:04)
[2020-01-19] MEDS: lamoTRIgine 100mg tablet PO SCH ×2 (07:41→20:06)
[2020-01-19] MEDS: vitamin D (cholecalciferol) 1,000 unit tablet PO SCH (07:41)
[2020-01-19] MEDS: docusate sod 250mg capsule PO SCH ×2 (07:41→20:04)
[2020-01-19] MEDS: busPIRone 5mg tablet PO SCH ×3 (07:41→20:10)
[2020-01-19] MEDS: clonazePAM 0.5mg tablet PO SCH ×2 (07:41→20:04)
[2020-01-19] MEDS: levoTHYROXINE 25mcg tablet PO SCH (07:42)
[2020-01-19] MEDS: nicotine 21mg patch - 24 hr TD SCH (08:00)
[2020-01-19] MEDS: clozapine 25mg tablet PO SCH ×3 (08:25→17:07)
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
[2020-01-19] MEDS: acetaminophen 325mg tablet PO PRN (18:40)
[2020-01-19] MEDS: clozapine 100mg tablet PO SCH (20:04)
[2020-01-19] MEDS: citalopram 20mg tablet PO SCH (20:05)
[2020-01-19] MEDS: olanzapine 10mg tablet PO SCH (20:06)
[2020-01-19] MEDS: oxybutynin 5mg tablet PO SCH (20:07)
[2020-01-19] MEDS: propranolol 10mg tablet PO SCH (20:10)
[2020-01-19 20:33] VITALS: BP 110/74
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
[2020-01-20] MEDS: clonazePAM 0.5mg tablet PO SCH ×2 (07:58→20:16)
[2020-01-20] MEDS: vitamin D (cholecalciferol) 1,000 unit tablet PO SCH (07:58)
[2020-01-20] MEDS: propranolol 10mg tablet PO SCH ×3 (07:58→20:16)
[2020-01-20] MEDS: docusate sod 250mg capsule PO SCH ×2 (07:58→20:16)
[2020-01-20] MEDS: levoTHYROXINE 25mcg tablet PO SCH (07:58)
[2020-01-20] MEDS: lamoTRIgine 100mg tablet PO SCH ×2 (07:59→20:16)
[2020-01-20] MEDS: clozapine 25mg tablet PO SCH ×4 (07:59→20:15)
[2020-01-20] MEDS: sennosides/docusate sodium tablet PO SCH ×2 (07:59→20:15)
[2020-01-20] MEDS: busPIRone 5mg tablet PO SCH ×3 (07:59→20:16)
[2020-01-20] MEDS: ibuprofen tablet 400 MG TABLET PO PRN ×2 (07:59→17:55)
[2020-01-20 08:00] VITALS: BP 110/53
[2020-01-20] MEDS: nicotine 21mg patch - 24 hr TD SCH (08:00)
[2020-01-20] MEDS: benztropine 1mg tablet PO SCH (08:00)
[2020-01-20] MEDS: olanzapine 10mg tablet PO PRN (08:54)
[2020-01-20] MEDS: mag hydrox/Alum hydrox/simeth 30ml oral suspension PO PRN (09:37)
--- NOTE | 2020-01-20 14:56 | NUR ---
1:3-VXL-Mynbxoxw Tolerance Presenting Issues: Pt has poor impulse management, experiences frequent emotional dysregulation, low frustration tolerance, restlessness, struggles to wait for staff to respond to her requests. Interventions: SS met w/pt provide support & engaged pt in 1:1 psychotherapeutic DBT interventions. Pt practiced calm breathing relaxation skill, identify thoughts & emotions, describe ways to catch and distract unhelpful thoughts. Plan: SS will continue to provide 1:1 psychotherapeutic interventions to support pat while inpatient. Lola Galvan LCSW Addendum: 01/20/20 at 1525 by Lola Galvan Amended: Links added.
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
[2020-01-20 19:40] VITALS: BP 120/73
[2020-01-20] MEDS: clozapine 100mg tablet PO SCH (20:15)
[2020-01-20] MEDS: olanzapine 10mg tablet PO SCH (20:15)
[2020-01-20] MEDS: citalopram 20mg tablet PO SCH (20:16)
[2020-01-20] MEDS: oxybutynin 5mg tablet PO SCH (20:16)
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
[2020-01-21] MEDS: acetaminophen 325mg tablet PO PRN (01:07)
[2020-01-21 07:52] VITALS: BP 114/69
[2020-01-21] MEDS: sennosides/docusate sodium tablet PO SCH ×2 (08:14→20:38)
[2020-01-21] MEDS: docusate sod 250mg capsule PO SCH ×2 (08:14→20:37)
[2020-01-21] MEDS: vitamin D (cholecalciferol) 1,000 unit tablet PO SCH (08:14)
[2020-01-21] MEDS: lamoTRIgine 100mg tablet PO SCH ×2 (08:14→20:38)
[2020-01-21] MEDS: clonazePAM 0.5mg tablet PO SCH ×2 (08:14→20:37)
[2020-01-21] MEDS: levoTHYROXINE 25mcg tablet PO SCH (08:14)
[2020-01-21] MEDS: propranolol 10mg tablet PO SCH ×3 (08:15→20:36)
[2020-01-21] MEDS: busPIRone 5mg tablet PO SCH ×3 (08:15→20:38)
[2020-01-21] MEDS: ibuprofen tablet 400 MG TABLET PO PRN ×2 (08:15→17:05)
[2020-01-21] MEDS: nicotine 21mg patch - 24 hr TD SCH (08:15)
[2020-01-21] MEDS: clozapine 25mg tablet PO SCH ×4 (08:17→20:38)
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
[2020-01-21] MEDS: magnesium hydroxide 30ml (MOM) UD suspension PO PRN (19:17)
[2020-01-21 19:52] VITALS: BP 122/77
[2020-01-21] MEDS: citalopram 20mg tablet PO SCH (20:37)
[2020-01-21] MEDS: oxybutynin 5mg tablet PO SCH (20:37)
[2020-01-21] MEDS: olanzapine 10mg tablet PO SCH (20:37)
[2020-01-21] MEDS: clozapine 100mg tablet PO SCH (20:38)
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
[2020-01-22] MEDS: ibuprofen tablet 400 MG TABLET PO PRN ×2 (01:41→14:20)
[2020-01-22] MEDS: acetaminophen 325mg tablet PO PRN (07:06)
[2020-01-22] MEDS: levoTHYROXINE 25mcg tablet PO SCH (07:22)
[2020-01-22] MEDS: busPIRone 5mg tablet PO SCH ×3 (07:22→20:57)
[2020-01-22] MEDS: sennosides/docusate sodium tablet PO SCH ×2 (07:22→20:58)
[2020-01-22] MEDS: vitamin D (cholecalciferol) 1,000 unit tablet PO SCH (07:23)
[2020-01-22] MEDS: lamoTRIgine 100mg tablet PO SCH ×2 (07:23→20:58)
[2020-01-22] MEDS: docusate sod 250mg capsule PO SCH ×2 (07:23→20:58)
[2020-01-22] MEDS: propranolol 10mg tablet PO SCH ×3 (07:24→20:56)
[2020-01-22] MEDS: clozapine 25mg tablet PO SCH ×4 (07:24→21:08)
[2020-01-22] MEDS: clonazePAM 0.5mg tablet PO SCH ×2 (07:24→20:57)
[2020-01-22] MEDS: nicotine 21mg patch - 24 hr TD SCH (07:26)
[2020-01-22 07:45] VITALS: BP 105/53
--- NOTE | 2020-01-22 11:03 | NUR ---
CM-Placement Presenting Issues: [facility] office requesting current MD, Nursing notes, Influenza clearance & labs per request from [facility]. Interventions: SS reviewed chart, noted pt recieved Influenza A& B testing on 01/08; pt tested positive for Influenza A & negative for type B. Tamiflu & isolation ordered. On 01/17 MD note indicated that Influenza issue was resolved and pt no longer in isolation. Plan: packet faxed to [facility] to facilitate placement services. Lola Galvan LCSW Addendum: 01/22/20 at 1107 by Lola COUCH Amended: Links added.
[2020-01-22] MEDS ORDERED: tuberculin, purif. prot. deriv. 5 units/0.1ml ID ONE (13:40)
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
[2020-01-22] MEDS: benztropine 1mg tablet PO PRN (17:48)
[2020-01-22 19:00] VITALS: BP 118/73
[2020-01-22] MEDS: clozapine 100mg tablet PO SCH (20:56)
[2020-01-22] MEDS: citalopram 20mg tablet PO SCH (20:57)
[2020-01-22] MEDS: oxybutynin 5mg tablet PO SCH (21:08)
[2020-01-22] MEDS: lactulose 20gm/30ml cup PO PRN (21:08)
[2020-01-22] MEDS: olanzapine 10mg tablet PO SCH (21:10)
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
[2020-01-23] MEDS: ibuprofen tablet 400 MG TABLET PO PRN ×2 (06:06→15:42)
[2020-01-23] MEDS: propranolol 10mg tablet PO SCH ×3 (07:44→21:21)
[2020-01-23] MEDS: sennosides/docusate sodium tablet PO SCH ×2 (07:44→21:23)
[2020-01-23] MEDS: clozapine 25mg tablet PO SCH ×4 (07:44→21:23)
[2020-01-23] MEDS: lamoTRIgine 100mg tablet PO SCH ×2 (07:44→21:24)
[2020-01-23] MEDS: levoTHYROXINE 25mcg tablet PO SCH (07:44)
[2020-01-23] MEDS: vitamin D (cholecalciferol) 1,000 unit tablet PO SCH (07:44)
[2020-01-23] MEDS: docusate sod 250mg capsule PO SCH ×2 (07:44→21:22)
[2020-01-23] MEDS: benztropine 1mg tablet PO PRN (07:45)
[2020-01-23] MEDS: clonazePAM 0.5mg tablet PO SCH ×2 (07:45→21:24)
[2020-01-23] MEDS: busPIRone 5mg tablet PO SCH ×2 (07:45→12:39)
[2020-01-23] MEDS: nicotine 21mg patch - 24 hr TD SCH (07:49)
[2020-01-23 07:52] VITALS: BP 126/68
[2020-01-23] MEDS: lactulose 20gm/30ml cup PO PRN (07:52)
--- NOTE | 2020-01-23 14:41 | NUR ---
1:1 Session. As I was walking past her room I saw she was awake and I stood at door asking how she was doing and she invited me in asking to sit in the chair and she preceded to update me from our discussion last Saturday regarding possible placement. Stated at first she was hoping to be accepted at [facility] in [place] but now waiting to hear from [facility] and is hoping to be accepted and will know at beginning of week she hopes. Stated she has been doing very well on the unit by cooperating with all the staff and getting along with the other pts and that she is sleeping and eating well. I validated her stating she has made great progress in her treatment and care and that she will do very well at her next placement. She then laid down on her bed and thanked me for speaking with her. CYDNEY Iyer
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
[2020-01-23 19:00] VITALS: BP 107/55
[2020-01-23] MEDS: olanzapine 10mg tablet PO SCH (21:22)
[2020-01-23] MEDS: clozapine 100mg tablet PO SCH (21:23)
[2020-01-23] MEDS: citalopram 20mg tablet PO SCH (21:23)
[2020-01-23] MEDS: oxybutynin 5mg tablet PO SCH (21:24)
[2020-01-23 21:26] VITALS: BP 116/70
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
[2020-01-24] MEDS: ibuprofen tablet 400 MG TABLET PO PRN (03:40)
[2020-01-24 07:42] VITALS: BP 111/58
[2020-01-24] MEDS: nicotine 14mg patch - 24hr TD SCH (07:56)
[2020-01-24] MEDS: clonazePAM 0.5mg tablet PO SCH ×2 (07:56→20:23)
[2020-01-24] MEDS: lamoTRIgine 100mg tablet PO SCH ×2 (07:57→20:25)
[2020-01-24] MEDS: propranolol 10mg tablet PO SCH ×3 (07:57→20:22)
[2020-01-24] MEDS: vitamin D (cholecalciferol) 1,000 unit tablet PO SCH (07:57)
[2020-01-24] MEDS: sennosides/docusate sodium tablet PO SCH ×2 (07:57→20:23)
[2020-01-24] MEDS: levoTHYROXINE 25mcg tablet PO SCH (07:57)
[2020-01-24] MEDS: clozapine 25mg tablet PO SCH ×4 (07:57→20:21)
[2020-01-24] MEDS: docusate sod 250mg capsule PO SCH ×2 (07:57→20:23)
--- NOTE | 2020-01-24 10:31 | NUR ---
Reassessment: Pt PO 75-100% avg regular diet meeting needs. LBM 01/22 No nutrition concerns at this time. Will continue to monitor. Rec: 1. continue regular diet 2. routine bowel care 3. wt per rx Addendum: 01/24/20 at [address] Amended: Links added.
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
[2020-01-24] MEDS: olanzapine 10mg tablet PO PRN (19:32)
[2020-01-24 20:00] VITALS: BP 114/66
[2020-01-24] MEDS: olanzapine 10mg tablet PO SCH (20:19)
[2020-01-24] MEDS: oxybutynin 5mg tablet PO SCH (20:23)
[2020-01-24] MEDS: citalopram 20mg tablet PO SCH (20:24)
[2020-01-24] MEDS: clozapine 100mg tablet PO SCH (20:25)
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
[2020-01-25] MEDS: ibuprofen tablet 400 MG TABLET PO PRN ×2 (03:23→12:08)
[2020-01-25 08:00] VITALS: BP 93/43
[2020-01-25] MEDS: propranolol 10mg tablet PO SCH ×3 (08:00→20:23)
[2020-01-25] MEDS: acetaminophen 325mg tablet PO PRN (08:19)
[2020-01-25] MEDS: clonazePAM 0.5mg tablet PO SCH ×2 (08:20→20:23)
[2020-01-25] MEDS: docusate sod 250mg capsule PO SCH ×2 (08:20→20:23)
[2020-01-25] MEDS: levoTHYROXINE 25mcg tablet PO SCH (08:20)
[2020-01-25] MEDS: lamoTRIgine 100mg tablet PO SCH ×2 (08:21→20:23)
[2020-01-25] MEDS: vitamin D (cholecalciferol) 1,000 unit tablet PO SCH (08:21)
[2020-01-25] MEDS: sennosides/docusate sodium tablet PO SCH ×2 (08:22→20:23)
[2020-01-25] MEDS: clozapine 25mg tablet PO SCH ×4 (08:22→20:22)
[2020-01-25] MEDS: nicotine 14mg patch - 24hr TD SCH (08:25)
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
[2020-01-25 20:00] VITALS: BP 108/64
[2020-01-25] MEDS: clozapine 100mg tablet PO SCH (20:22)
[2020-01-25] MEDS: oxybutynin 5mg tablet PO SCH (20:23)
[2020-01-25] MEDS: citalopram 20mg tablet PO SCH (20:23)
[2020-01-25] MEDS: olanzapine 10mg tablet PO SCH (20:23)
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
--- NOTE | 2020-01-26 00:29 | NUR ---
Assumed care received report from Angel YOUNG with use of SBAR. Pt sleeping
[2020-01-26] MEDS: ibuprofen tablet 400 MG TABLET PO PRN (04:47)
[2020-01-26] MEDS: clonazePAM 0.5mg tablet PO SCH ×2 (07:51→20:20)
[2020-01-26] MEDS: clozapine 25mg tablet PO SCH ×4 (07:52→20:25)
[2020-01-26] MEDS: vitamin D (cholecalciferol) 1,000 unit tablet PO SCH (07:52)
[2020-01-26] MEDS: lamoTRIgine 100mg tablet PO SCH ×2 (07:52→20:23)
[2020-01-26] MEDS: docusate sod 250mg capsule PO SCH ×2 (07:53→20:22)
[2020-01-26] MEDS: levoTHYROXINE 25mcg tablet PO SCH (07:53)
[2020-01-26] MEDS: sennosides/docusate sodium tablet PO SCH ×2 (07:54→20:22)
[2020-01-26] MEDS: propranolol 10mg tablet PO SCH ×3 (07:54→20:24)
[2020-01-26 08:00] VITALS: BP 104/64
[2020-01-26] MEDS: nicotine 14mg patch - 24hr TD SCH (08:43)
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
[2020-01-26 20:08] VITALS: BP 127/75
[2020-01-26] MEDS: oxybutynin 5mg tablet PO SCH (20:21)
[2020-01-26] MEDS: clozapine 100mg tablet PO SCH (20:21)
[2020-01-26] MEDS: citalopram 20mg tablet PO SCH (20:23)
[2020-01-26] MEDS: benztropine 1mg tablet PO SCH (20:24)
[2020-01-26] MEDS: olanzapine 10mg tablet PO SCH (20:26)
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
[2020-01-27 08:00] VITALS: BP 115/64
[2020-01-27] MEDS: clozapine 25mg tablet PO SCH ×4 (08:17→20:34)
[2020-01-27] MEDS: lamoTRIgine 100mg tablet PO SCH ×2 (08:18→20:35)
[2020-01-27] MEDS: sennosides/docusate sodium tablet PO SCH ×2 (08:18→20:35)
[2020-01-27] MEDS: docusate sod 250mg capsule PO SCH ×2 (08:18→20:35)
[2020-01-27] MEDS: benztropine 1mg tablet PO SCH ×2 (08:18→20:35)
[2020-01-27] MEDS: clonazePAM 0.5mg tablet PO SCH ×2 (08:18→20:36)
[2020-01-27] MEDS: propranolol 10mg tablet PO SCH ×3 (08:18→20:35)
[2020-01-27] MEDS: levoTHYROXINE 25mcg tablet PO SCH (08:19)
[2020-01-27] MEDS: vitamin D (cholecalciferol) 1,000 unit tablet PO SCH (08:19)
[2020-01-27] MEDS: nicotine 14mg patch - 24hr TD SCH (08:19)
[2020-01-27] MEDS: ibuprofen tablet 400 MG TABLET PO PRN ×2 (10:02→19:05)
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
[2020-01-27] MEDS: olanzapine 10mg tablet PO PRN (17:54)
[2020-01-27] MEDS: lactulose 20gm/30ml cup PO PRN (19:05)
[2020-01-27 20:00] VITALS: BP 112/75
[2020-01-27] MEDS: clozapine 100mg tablet PO SCH (20:34)
[2020-01-27] MEDS: oxybutynin 5mg tablet PO SCH (20:35)
[2020-01-27] MEDS: citalopram 20mg tablet PO SCH (20:35)
[2020-01-27] MEDS: olanzapine 10mg tablet PO SCH (20:36)
[2020-01-27] MEDS: LORazepam 1 MG tablet PO PRN (22:40)
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
[2020-01-28] MEDS: tizanidine 4mg tablet PO PRN (03:44)
[2020-01-28] MEDS: docusate sod 250mg capsule PO SCH ×2 (07:43→20:37)
[2020-01-28] MEDS: benztropine 1mg tablet PO SCH ×2 (07:43→20:37)
[2020-01-28] MEDS: levoTHYROXINE 25mcg tablet PO SCH (07:43)
[2020-01-28] MEDS: nicotine 14mg patch - 24hr TD SCH (07:43)
[2020-01-28] MEDS: clozapine 25mg tablet PO SCH ×4 (07:44→20:36)
[2020-01-28] MEDS: lamoTRIgine 100mg tablet PO SCH ×2 (07:44→20:35)
[2020-01-28] MEDS: propranolol 10mg tablet PO SCH ×3 (07:44→20:39)
[2020-01-28] MEDS: sennosides/docusate sodium tablet PO SCH ×2 (07:45→20:39)
[2020-01-28] MEDS: vitamin D (cholecalciferol) 1,000 unit tablet PO SCH (07:45)
[2020-01-28 08:00] VITALS: BP 84/42
[2020-01-28] MEDS: clonazePAM 0.5mg tablet PO SCH ×2 (08:00→20:37)
[2020-01-28] MEDS: acetaminophen 325mg tablet PO PRN (10:31)
[2020-01-28] MEDS: lactulose 20gm/30ml cup PO PRN (10:31)
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
[2020-01-28 19:00] VITALS: BP 113/71
[2020-01-28] MEDS ORDERED: magnesium citrate 296ml oral solution PO ONE (19:20)
[2020-01-28] MEDS: oxybutynin 5mg tablet PO SCH (20:36)
[2020-01-28] MEDS: clozapine 100mg tablet PO SCH (20:36)
[2020-01-28] MEDS: citalopram 20mg tablet PO SCH (20:37)
[2020-01-28] MEDS: olanzapine 10mg tablet PO SCH (20:38)
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
[2020-01-29] MEDS: tizanidine 4mg tablet PO PRN (06:12)
[2020-01-29 07:22] VITALS: BP 111/69
[2020-01-29] MEDS: nicotine 14mg patch - 24hr TD SCH (07:46)
[2020-01-29] MEDS: vitamin D (cholecalciferol) 1,000 unit tablet PO SCH (07:46)
[2020-01-29] MEDS: levoTHYROXINE 25mcg tablet PO SCH (07:46)
[2020-01-29] MEDS: propranolol 10mg tablet PO SCH ×3 (07:46→20:17)
[2020-01-29] MEDS: lamoTRIgine 100mg tablet PO SCH ×2 (07:47→20:14)
[2020-01-29] MEDS: sennosides/docusate sodium tablet PO SCH ×2 (07:47→20:14)
[2020-01-29] MEDS: clonazePAM 0.5mg tablet PO SCH ×2 (07:47→20:12)
[2020-01-29] MEDS: clozapine 25mg tablet PO SCH ×4 (07:47→20:14)
[2020-01-29] MEDS: docusate sod 250mg capsule PO SCH ×2 (07:47→20:12)
[2020-01-29] MEDS: benztropine 1mg tablet PO SCH ×2 (07:47→20:14)
--- NOTE | 2020-01-29 11:57 | NUR ---
Reassessment: Patient's PO intake slightly fluctuates however overall 75-100% meeting nutrient needs. LBM 01/27 however documented as a small BM with last moderate BM 01/25. Pt receiving routine and PRN bowel care and received one time dose of Mag Citrate 01/27. No nutrition intervention implemented at this time. Will continue to follow. Rec: 1. continue regular diet 2. routine bowel care; monitor need for additional 3. wt per rx Addendum: 01/29/[address] at [address] Amended: Links added.
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
[2020-01-29] MEDS ORDERED: magnesium citrate 296ml oral solution PO ONE (17:15)
[2020-01-29] MEDS: acetaminophen 325mg tablet PO PRN (17:51)
[2020-01-29 20:00] VITALS: BP 95/68
[2020-01-29] MEDS: clozapine 100mg tablet PO SCH (20:12)
[2020-01-29] MEDS: olanzapine 10mg tablet PO SCH (20:13)
[2020-01-29] MEDS: citalopram 20mg tablet PO SCH (20:14)
[2020-01-29] MEDS: oxybutynin 5mg tablet PO SCH (20:14)
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
[2020-01-30 07:02] VITALS: BP 94/50
[2020-01-30] MEDS: levoTHYROXINE 25mcg tablet PO SCH (07:09)
[2020-01-30 07:30] VITALS: BP 112/61
[2020-01-30] MEDS: nicotine 14mg patch - 24hr TD SCH (07:31)
[2020-01-30] MEDS: vitamin D (cholecalciferol) 1,000 unit tablet PO SCH (07:32)
[2020-01-30] MEDS: benztropine 1mg tablet PO SCH ×2 (07:32→20:20)
[2020-01-30] MEDS: clonazePAM 0.5mg tablet PO SCH ×2 (07:32→20:19)
[2020-01-30] MEDS: lamoTRIgine 100mg tablet PO SCH ×2 (07:33→20:19)
[2020-01-30] MEDS: clozapine 25mg tablet PO SCH ×4 (07:33→20:18)
[2020-01-30] MEDS: propranolol 10mg tablet PO SCH ×3 (07:33→20:20)
[2020-01-30] MEDS: docusate sod 250mg capsule PO SCH ×2 (07:34→20:20)
[2020-01-30] MEDS: sennosides/docusate sodium tablet PO SCH ×2 (07:34→20:20)
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
[2020-01-30] MEDS: ibuprofen tablet 400 MG TABLET PO PRN (12:30)
--- NOTE | 2020-01-30 13:40 | NUR ---
1:1 Individual session: Mindfulness and self care was discussion with pt in which she was asking if I had heard any word on placement update. I reviewed past week documentation and pts social worker masters ,Lola, is awaiting to hear if pt has been accepted. Pt went on to state that the month she has been here at [facility] has been a good experience for her and is looking forward to moving on and stated she has learned the importance of how she handles stress and conflict and has been practicing healthier communication on the unit with nursing staff as well as her interactions with other pts. Stated she is sleeping well and eats all of her 3 meals and follows all the rules on the unit. Pt presented herself in a very calm manner and stayed focus on conversation at hand and able to express self. Discussed also with pt the importance of living and staying in the moment and being mindful of her personal care needs as a daily priority which she understood and again stated she is practicing these skills here on the unit. CYDNEY Iyer
[2020-01-30 19:04] VITALS: BP 111/71
[2020-01-30] MEDS: clozapine 100mg tablet PO SCH (20:19)
[2020-01-30] MEDS: citalopram 20mg tablet PO SCH (20:20)
[2020-01-30] MEDS: olanzapine 10mg tablet PO SCH (20:20)
[2020-01-30] MEDS: oxybutynin 5mg tablet PO SCH (20:20)
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
[2020-01-31] MEDS: ibuprofen tablet 400 MG TABLET PO PRN (05:55)
[2020-01-31] MEDS: nicotine 14mg patch - 24hr TD SCH (07:49)
[2020-01-31] MEDS: lamoTRIgine 100mg tablet PO SCH ×2 (07:50→20:43)
[2020-01-31] MEDS: clozapine 25mg tablet PO SCH ×4 (07:50→20:42)
[2020-01-31] MEDS: clonazePAM 0.5mg tablet PO SCH (07:50)
[2020-01-31] MEDS: docusate sod 250mg capsule PO SCH ×2 (07:50→20:42)
[2020-01-31] MEDS: benztropine 1mg tablet PO SCH ×2 (07:50→20:43)
[2020-01-31] MEDS: vitamin D (cholecalciferol) 1,000 unit tablet PO SCH (07:51)
[2020-01-31] MEDS: levoTHYROXINE 25mcg tablet PO SCH (07:51)
[2020-01-31] MEDS: propranolol 10mg tablet PO SCH ×3 (07:52→21:10)
[2020-01-31] MEDS: sennosides/docusate sodium tablet PO SCH ×2 (07:52→20:42)
[2020-01-31 08:00] VITALS: BP 69/59
[2020-01-31 13:00] VITALS: BP 114/80
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
[2020-01-31 19:04] VITALS: BP 111/61
[2020-01-31] MEDS: acetaminophen 325mg tablet PO PRN (20:41)
[2020-01-31] MEDS: oxybutynin 5mg tablet PO SCH (20:41)
[2020-01-31] MEDS: clozapine 100mg tablet PO SCH (20:42)
[2020-01-31] MEDS: CLONAZEPAM 0.25 MG oral disentigrating tablet (ODT) PO SCH (20:42)
[2020-01-31] MEDS: citalopram 20mg tablet PO SCH (20:43)
[2020-01-31] MEDS ORDERED: tizanidine 4mg tablet PO SCH (21:00)
[2020-01-31] MEDS: olanzapine 10mg tablet PO SCH (21:09)
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
[2020-02-01] MEDS: nicotine 14mg patch - 24hr TD SCH (07:54)
[2020-02-01] MEDS: vitamin D (cholecalciferol) 1,000 unit tablet PO SCH (07:54)
[2020-02-01] MEDS: propranolol 10mg tablet PO SCH ×3 (07:54→20:10)
[2020-02-01] MEDS: benztropine 1mg tablet PO SCH ×2 (07:54→20:10)
[2020-02-01] MEDS: clozapine 25mg tablet PO SCH ×4 (07:54→20:11)
[2020-02-01] MEDS: CLONAZEPAM 0.25 MG oral disentigrating tablet (ODT) PO SCH ×2 (07:55→20:10)
[2020-02-01] MEDS: lamoTRIgine 100mg tablet PO SCH ×2 (07:55→20:11)
[2020-02-01] MEDS: levoTHYROXINE 25mcg tablet PO SCH (07:55)
[2020-02-01] MEDS: sennosides/docusate sodium tablet PO SCH ×2 (07:55→20:10)
[2020-02-01] MEDS: docusate sod 250mg capsule PO SCH ×2 (07:55→20:15)
[2020-02-01 08:00] VITALS: BP 102/60
[2020-02-01 12:51] VITALS: BP 117/65
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
[2020-02-01] MEDS: ibuprofen tablet 400 MG TABLET PO PRN (18:59)
[2020-02-01 20:00] VITALS: BP 118/70
[2020-02-01] MEDS: olanzapine 10mg tablet PO SCH (20:10)
[2020-02-01] MEDS: clozapine 100mg tablet PO SCH (20:11)
[2020-02-01] MEDS: citalopram 20mg tablet PO SCH (20:11)
[2020-02-01] MEDS: oxybutynin 5mg tablet PO SCH (20:11)
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
[2020-02-02 08:00] VITALS: BP 108/63
[2020-02-02] MEDS: propranolol 10mg tablet PO SCH ×3 (08:07→20:22)
[2020-02-02] MEDS: vitamin D (cholecalciferol) 1,000 unit tablet PO SCH (08:07)
[2020-02-02] MEDS: docusate sod 250mg capsule PO SCH ×2 (08:07→20:23)
[2020-02-02] MEDS: clozapine 25mg tablet PO SCH ×4 (08:07→20:23)
[2020-02-02] MEDS: levoTHYROXINE 25mcg tablet PO SCH (08:07)
[2020-02-02] MEDS: lamoTRIgine 100mg tablet PO SCH ×2 (08:07→20:23)
[2020-02-02] MEDS: benztropine 1mg tablet PO SCH ×2 (08:08→20:21)
[2020-02-02] MEDS: sennosides/docusate sodium tablet PO SCH ×2 (08:08→20:21)
[2020-02-02] MEDS: nicotine 14mg patch - 24hr TD SCH (08:12)
[2020-02-02] MEDS: CLONAZEPAM 0.25 MG oral disentigrating tablet (ODT) PO SCH ×2 (08:13→20:21)
[2020-02-02] MEDS: ibuprofen tablet 400 MG TABLET PO PRN (08:16)
[2020-02-02 12:30] VITALS: BP 116/70
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
--- NOTE | 2020-02-02 14:24 | NUR ---
ACCEPTED AT [facility] Ashley, Public Guardian, called to report that Antonella has been accepted at [facility] and will hopefully be transported within the next week. She reported Antonella spent a year at [facility] in the past. NETO Witt
[2020-02-02] MEDS: lactulose 20gm/30ml cup PO PRN ×2 (14:30→22:10)
[2020-02-02] MEDS: olanzapine 10mg tablet PO PRN (15:12)
--- NOTE | 2020-02-02 15:36 | NUR ---
DCP Presenting Issues: Pt's been accepted at [facility] in [place], needs Physician's Report & [facility] Pt's PG is working on transportation for pt to go to [place] sometime next week. Interventions: SS obtained copy of recent PPD and completed Physician's Report. Plan: SS to consult w/attending physician and ask her to review and sign off on pt's Physician's report to facilitate pt's placement. Lola Galvan LCSW Addendum: 02/02/20 at 1548 by Lola COUCH Amended: Links added.
[2020-02-02] MEDS: LORazepam 1 MG tablet PO PRN (16:26)
[2020-02-02 19:17] VITALS: BP 114/70
[2020-02-02] MEDS: oxybutynin 5mg tablet PO SCH (20:21)
[2020-02-02] MEDS: olanzapine 10mg tablet PO SCH (20:21)
[2020-02-02] MEDS: citalopram 20mg tablet PO SCH (20:21)
[2020-02-02] MEDS: clozapine 100mg tablet PO SCH (20:22)
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
[2020-02-03] MEDS: ibuprofen tablet 400 MG TABLET PO PRN ×2 (02:31→18:44)
[2020-02-03] MEDS: sennosides/docusate sodium tablet PO SCH ×2 (07:17→20:11)
[2020-02-03] MEDS: CLONAZEPAM 0.25 MG oral disentigrating tablet (ODT) PO SCH ×2 (07:17→20:13)
[2020-02-03] MEDS: docusate sod 250mg capsule PO SCH ×2 (07:17→20:10)
[2020-02-03] MEDS: lamoTRIgine 100mg tablet PO SCH ×2 (07:17→20:12)
[2020-02-03] MEDS: vitamin D (cholecalciferol) 1,000 unit tablet PO SCH (07:17)
[2020-02-03] MEDS: levoTHYROXINE 25mcg tablet PO SCH (07:19)
[2020-02-03] MEDS: nicotine 14mg patch - 24hr TD SCH (07:19)
[2020-02-03] MEDS: clozapine 25mg tablet PO SCH ×4 (07:20→20:12)
[2020-02-03] MEDS: benztropine 1mg tablet PO SCH ×2 (07:20→20:11)
[2020-02-03 07:24] VITALS: BP 98/60
[2020-02-03] MEDS: lactulose 20gm/30ml cup PO PRN (07:37)
[2020-02-03] MEDS: benzocaine (Anbesol) 12ml bottle MM PRN (07:38)
[2020-02-03] MEDS: propranolol 10mg tablet PO SCH ×3 (07:38→20:10)
--- NOTE | 2020-02-03 11:53 | NUR ---
Reassessment: Pt continues meeting nutrient needs with average 75-100% PO intake on regular diet. LBM 01/30 documented as moderate. Pt receiving routine and PRN bowel care. No nutrition intervention warranted at this time. Will continue to follow. Rec: 1. continue regular diet 2. routine bowel care; monitor need for additional 3. wt per rx Addendum: 02/03/20 at [address] Amended: Links added.
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
[2020-02-03 19:21] VITALS: BP 106/62
[2020-02-03] MEDS: oxybutynin 5mg tablet PO SCH (20:08)
[2020-02-03] MEDS: clozapine 100mg tablet PO SCH (20:09)
[2020-02-03] MEDS: olanzapine 10mg tablet PO SCH (20:11)
[2020-02-03] MEDS: citalopram 20mg tablet PO SCH (20:12)
[2020-02-04] MEDS: LORazepam 1 MG tablet PO PRN (02:24)
[2020-02-04] MEDS: acetaminophen 325mg tablet PO PRN (02:25)
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
[2020-02-04 07:12] VITALS: BP 122/73
[2020-02-04] MEDS: levoTHYROXINE 25mcg tablet PO SCH (07:24)
[2020-02-04] MEDS: CLONAZEPAM 0.25 MG oral disentigrating tablet (ODT) PO SCH ×2 (07:24→20:06)
[2020-02-04] MEDS: vitamin D (cholecalciferol) 1,000 unit tablet PO SCH (07:24)
[2020-02-04] MEDS: clozapine 25mg tablet PO SCH ×4 (07:24→20:04)
[2020-02-04] MEDS: lamoTRIgine 100mg tablet PO SCH ×2 (07:24→20:07)
[2020-02-04] MEDS: benztropine 1mg tablet PO SCH ×2 (07:24→20:06)
[2020-02-04] MEDS: docusate sod 250mg capsule PO SCH ×2 (07:24→20:04)
[2020-02-04] MEDS: sennosides/docusate sodium tablet PO SCH ×2 (07:24→20:07)
[2020-02-04] MEDS: nicotine 14mg patch - 24hr TD SCH (07:25)
[2020-02-04] MEDS: propranolol 10mg tablet PO SCH ×3 (07:25→20:05)
[2020-02-04] MEDS: lactulose 20gm/30ml cup PO PRN (07:37)
[2020-02-04] MEDS: benzocaine (Anbesol) 12ml bottle MM PRN (07:37)
--- NOTE | 2020-02-04 08:23 | NUR ---
Late note for contact completed on 02/03/20 1:1-CBT/Closure Presenting Issues: Pt's scheduled to d/c sometime next week as she's been accepted @ the [facility] in [place], [place]; PG is arranging transportation for next week. Interventions: SS met with pt and provided 1:1 support via CBT, DBT & MA strategies to engage pt in reviewing her progress while inpatient, reviewed strategies she's learned & practiced to cope w/emotional distress in the moment, setting goals for new placement, and identify resources to support her in achieving her goal(s). Per session, pt able to demonstrate proper controlled breathing techniques to calm her body, the use of ignore & avoid the drama strategy via role play, and differentiate between thoughts and emotions. Pt able to set short term & usp goals. Short term goal: "I want to do good at my new placement by not getting into trouble and not getting into other people's drama". SS utilized MA strategies to support pt in identifying resources she needs & skills she has to meet this goal. Pt identified controlled breathing and ignore & avoidance as skills she can use, pt noted that these skills can be combined when she experiences aggressive emotions. However, pt also noted that when she is feeling the aggressive emotions she can't remember to use her coping skills and would need someone to provide the directions to do so. Other resources pt identified as helpful tools for her to cope with minor daily stressors; stress ball, slime, art & coloring. MCC goal: "I want to get off of [facility]itDATAhip and be able to have my own place". Pt noted that she is not ready for this now but wants to continue 1:1 therapy to learn effective ways to coping with life so she can live independently. Plan: SS will consult w/pt's [facility] conservator to advocate for continued psychotherapeutic support for pt so she can achieve both her short & terminal gauger goals @ her next placement. Lola Galvan LCSW Addendum: 02/04/20 at 0930 by Lola COUCH Amended: Links added.
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
[2020-02-04 19:00] VITALS: BP 107/67
[2020-02-04] MEDS: clozapine 100mg tablet PO SCH (20:05)
[2020-02-04] MEDS: citalopram 20mg tablet PO SCH (20:05)
[2020-02-04] MEDS: olanzapine 10mg tablet PO SCH (20:07)
[2020-02-04] MEDS: ibuprofen tablet 400 MG TABLET PO PRN (20:07)
[2020-02-04] MEDS: oxybutynin 5mg tablet PO SCH (20:07)
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
[2020-02-05] MEDS: acetaminophen 325mg tablet PO PRN (03:53)
[2020-02-05 07:33] VITALS: BP 113/75
[2020-02-05] MEDS: propranolol 10mg tablet PO SCH ×3 (07:48→20:04)
[2020-02-05] MEDS: levoTHYROXINE 25mcg tablet PO SCH (07:48)
[2020-02-05] MEDS: nicotine 14mg patch - 24hr TD SCH (07:48)
[2020-02-05] MEDS: sennosides/docusate sodium tablet PO SCH ×2 (07:48→20:04)
[2020-02-05] MEDS: lamoTRIgine 100mg tablet PO SCH ×2 (07:48→20:04)
[2020-02-05] MEDS: docusate sod 250mg capsule PO SCH ×2 (07:48→20:02)
[2020-02-05] MEDS: vitamin D (cholecalciferol) 1,000 unit tablet PO SCH (07:48)
[2020-02-05] MEDS: clozapine 25mg tablet PO SCH ×4 (07:49→20:03)
[2020-02-05] MEDS: lactulose 20gm/30ml cup PO PRN (07:49)
[2020-02-05] MEDS: CLONAZEPAM 0.25 MG oral disentigrating tablet (ODT) PO SCH ×2 (07:49→20:01)
[2020-02-05] MEDS: benztropine 1mg tablet PO SCH ×2 (07:49→20:04)
[2020-02-05] MEDS: ibuprofen tablet 400 MG TABLET PO PRN ×2 (09:24→21:42)
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
[2020-02-05 20:00] VITALS: BP 127/72
[2020-02-05] MEDS: clozapine 100mg tablet PO SCH (20:01)
[2020-02-05] MEDS: olanzapine 10mg tablet PO SCH (20:03)
[2020-02-05] MEDS: citalopram 20mg tablet PO SCH (20:04)
[2020-02-05] MEDS: oxybutynin 5mg tablet PO SCH (20:04)
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
[2020-02-06 07:18] VITALS: BP 120/60
[2020-02-06] MEDS: propranolol 10mg tablet PO SCH ×3 (07:40→20:19)
[2020-02-06] MEDS: levoTHYROXINE 25mcg tablet PO SCH (07:40)
[2020-02-06] MEDS: vitamin D (cholecalciferol) 1,000 unit tablet PO SCH (07:41)
[2020-02-06] MEDS: benztropine 1mg tablet PO SCH ×2 (07:41→20:19)
[2020-02-06] MEDS: docusate sod 250mg capsule PO SCH ×2 (07:41→20:19)
[2020-02-06] MEDS: sennosides/docusate sodium tablet PO SCH ×2 (07:41→20:19)
[2020-02-06] MEDS: lamoTRIgine 100mg tablet PO SCH ×2 (07:41→20:21)
[2020-02-06] MEDS: CLONAZEPAM 0.25 MG oral disentigrating tablet (ODT) PO SCH ×2 (07:41→20:21)
[2020-02-06] MEDS: clozapine 25mg tablet PO SCH ×4 (07:41→20:20)
[2020-02-06] MEDS: nicotine 14mg patch - 24hr TD SCH (08:00)
[2020-02-06] MEDS: benzocaine (Anbesol) 12ml bottle MM PRN ×2 (12:52→22:49)
[2020-02-06] MEDS: acetaminophen 325mg tablet PO PRN (15:44)
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
[2020-02-06 19:00] VITALS: BP 116/68
[2020-02-06] MEDS: olanzapine 10mg tablet PO SCH (20:18)
[2020-02-06] MEDS: oxybutynin 5mg tablet PO SCH (20:20)
[2020-02-06] MEDS: clozapine 100mg tablet PO SCH (20:20)
[2020-02-06] MEDS: citalopram 20mg tablet PO SCH (20:21)
[2020-02-06] MEDS: lactulose 20gm/30ml cup PO PRN (20:26)
[2020-02-06] MEDS: ibuprofen tablet 400 MG TABLET PO PRN (22:17)
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
[2020-02-07] MEDS: acetaminophen 325mg tablet PO PRN (04:13)
[2020-02-07 07:32] VITALS: BP 103/56
[2020-02-07 07:54] VITALS: BP 103/56
[2020-02-07] MEDS: lamoTRIgine 100mg tablet PO SCH ×2 (08:02→20:31)
[2020-02-07] MEDS: nicotine 14mg patch - 24hr TD SCH (08:02)
[2020-02-07] MEDS: sennosides/docusate sodium tablet PO SCH ×2 (08:02→20:28)
[2020-02-07] MEDS: docusate sod 250mg capsule PO SCH ×2 (08:02→20:30)
[2020-02-07] MEDS: CLONAZEPAM 0.25 MG oral disentigrating tablet (ODT) PO SCH ×2 (08:02→20:28)
[2020-02-07] MEDS: clozapine 25mg tablet PO SCH ×4 (08:02→20:29)
[2020-02-07] MEDS: propranolol 10mg tablet PO SCH ×3 (08:03→20:30)
[2020-02-07] MEDS: vitamin D (cholecalciferol) 1,000 unit tablet PO SCH (08:03)
[2020-02-07] MEDS: benztropine 1mg tablet PO SCH ×2 (08:03→20:28)
[2020-02-07] MEDS: levoTHYROXINE 25mcg tablet PO SCH (08:03)
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
[2020-02-07] MEDS: benzocaine (Anbesol) 12ml bottle MM PRN (14:17)
[2020-02-07 20:00] VITALS: BP 113/67
[2020-02-07] MEDS: clozapine 100mg tablet PO SCH (20:29)
[2020-02-07] MEDS: citalopram 20mg tablet PO SCH (20:29)
[2020-02-07] MEDS: oxybutynin 5mg tablet PO SCH (20:29)
[2020-02-07] MEDS: olanzapine 10mg tablet PO SCH (20:30)
[2020-02-07] MEDS: lactulose 20gm/30ml cup PO PRN (20:31)
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
[2020-02-08] MEDS: ibuprofen tablet 400 MG TABLET PO PRN ×2 (02:11→17:26)
[2020-02-08] MEDS: lamoTRIgine 100mg tablet PO SCH ×2 (07:13→20:22)
[2020-02-08] MEDS: CLONAZEPAM 0.25 MG oral disentigrating tablet (ODT) PO SCH ×2 (07:13→20:20)
[2020-02-08] MEDS: clozapine 25mg tablet PO SCH ×4 (07:13→20:21)
[2020-02-08] MEDS: vitamin D (cholecalciferol) 1,000 unit tablet PO SCH (07:14)
[2020-02-08] MEDS: benztropine 1mg tablet PO SCH ×2 (07:14→20:20)
[2020-02-08] MEDS: sennosides/docusate sodium tablet PO SCH ×2 (07:14→20:20)
[2020-02-08] MEDS: levoTHYROXINE 25mcg tablet PO SCH (07:14)
[2020-02-08] MEDS: propranolol 10mg tablet PO SCH ×3 (07:14→20:22)
[2020-02-08] MEDS: docusate sod 250mg capsule PO SCH ×2 (07:14→20:20)
[2020-02-08] MEDS: LORazepam 1 MG tablet PO PRN (07:14)
[2020-02-08] MEDS: nicotine 14mg patch - 24hr TD SCH (07:19)
[2020-02-08 07:34] VITALS: BP 111/61
[2020-02-08 08:00] VITALS: BP 111/61
--- NOTE | 2020-02-08 08:17 | NUR ---
DCP Presenting Issues: SS had t/c with pt's LPS conservator, per t/c pt will be picked up tomorrow morning @ 8:30 AM and taken to [facility] in [place]. Interventions: SS notified care team re pt needing 30-day meds to be called into [facility] pharmacy @ [facility] today so SS can pick it up. Plan: SS to sp[facility] picker meds. Lola Galvan MACHINE SETTER Addendum: 02/08/20 at 0821 by Lola Galvan SS Amended: Links added.
[2020-02-08] MEDS: acetaminophen 325mg tablet PO PRN ×2 (10:39→20:57)
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
[2020-02-08] MEDS: olanzapine 10mg tablet PO PRN (11:30)
[2020-02-08] MEDS ORDERED: LAMO100T PO (13:19)
[2020-02-08] MEDS ORDERED: CLOZ25TA12 PO ×2 (13:19)
[2020-02-08] MEDS ORDERED: PROP20TA6 PO (13:19)
[2020-02-08] MEDS ORDERED: BENZ1TAB7 PO (13:19)
[2020-02-08] MEDS ORDERED: CHOL100046 PO (13:19)
[2020-02-08] MEDS ORDERED: CITA-124 PO (13:19)
[2020-02-08] MEDS ORDERED: CLON0.252 PO (13:19)
[2020-02-08] MEDS ORDERED: OXYB5TAB16 PO (13:19)
[2020-02-08] MEDS ORDERED: CLOZ100T13 PO (13:19)
[2020-02-08] MEDS ORDERED: LEVO50TA8 PO (13:19)
[2020-02-08 19:15] LABS: HEMOGLOBIN 12.7 g/dl (12.0-16.0); MEAN PLATELET VOLUME 7.5 FL (7.4-10.4); RED BLOOD COUNT 3.95 X10'6 (4.20-5.60)
[2020-02-08 19:16] LABS: BASOPHILS # (AUTO) 0.1 X10'3 (0-0.2); BASOPHILS % (AUTO) 0.5 % (0-1); EOSINOPHILS % (AUTO) 0.3 % (0-6); LYMPHOCYTES # (AUTO) 3.1 X10'3 (1.1-4.8); LYMPHOCYTES % (AUTO) 27.2 % (21-51); MEAN CORPUSCULAR HEMOGLOBIN 32.3 PG (27.0-31.0); MEAN CORPUSCULAR HGB CONC 33.6 g/dL (33.0-36.5); MEAN CORPUSCULAR VOLUME 96.1 FL (78-98); MONOCYTES # (AUTO) 0.9 X10'3 (0-0.9); MONOCYTES % (AUTO) 7.6 % (2-12); NEUTROPHILS # (AUTO) 7.3 X10'3 (1.8-7.7); NEUTROPHILS % (AUTO) 64.4 % (42-75); PLATELET COUNT 250 X10'3 (140-440); RED CELL DISTRIBUTION WIDTH 12.6 % (11.5-14.5); WHITE BLOOD COUNT 11.3 X10'3 (4.5-11.0)
[2020-02-08 20:04] LABS: PLATELET ESTIMATE NORMAL; TOTAL CELLS COUNTED 100
[2020-02-08 20:08] VITALS: BP 120/70
[2020-02-08] MEDS: clozapine 100mg tablet PO SCH (20:21)
[2020-02-08] MEDS: oxybutynin 5mg tablet PO SCH (20:21)
[2020-02-08] MEDS: citalopram 20mg tablet PO SCH (20:21)
[2020-02-08] MEDS: olanzapine 10mg tablet PO SCH (20:22)
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
[2020-02-09] MEDS: ibuprofen tablet 400 MG TABLET PO PRN (01:51)
[2020-02-09 07:42] VITALS: BP 102/65
[2020-02-09] MEDS: vitamin D (cholecalciferol) 1,000 unit tablet PO SCH (07:56)
[2020-02-09] MEDS: clozapine 25mg tablet PO SCH (07:56)
[2020-02-09] MEDS: lamoTRIgine 100mg tablet PO SCH (07:56)
[2020-02-09] MEDS: sennosides/docusate sodium tablet PO SCH (07:56)
[2020-02-09] MEDS: levoTHYROXINE 25mcg tablet PO SCH (07:56)
[2020-02-09] MEDS: docusate sod 250mg capsule PO SCH (07:56)
[2020-02-09] MEDS: CLONAZEPAM 0.25 MG oral disentigrating tablet (ODT) PO SCH (07:57)
[2020-02-09] MEDS: propranolol 10mg tablet PO SCH (07:57)
[2020-02-09] MEDS: benztropine 1mg tablet PO SCH (07:57)
[2020-02-09] MEDS: nicotine 14mg patch - 24hr TD SCH (07:58)
--- NOTE | 2020-02-09 08:50 | NUR ---
DISCHARGE NOTE The patient was discharged today at 0850. She left with all belongings, medications and instructions. She was picked up by [facility] and driven to [facility] in [place]. The patient stated she was excited to go to her new home. She denies SI, HI, and has no hallucinations and has not been making any delusional statements. She was escorted to the lobby by NESS Cullen.
--- NOTE | 2020-02-09 09:32 | NUR ---
Late Note for contact completed on 02/08/20 Discharge Presenting Issues: On 02/08/20 PM Pt is discharging 02/09/20, SS is having difficulties getting meds filled @ pharmacy due to lack of more current labs. SS contacted PM kiln charger request that physician be contacted and for order for new lab draw. 02/09/20: Pt's d/c-ing this morning, need to be able to access meds at new placement. SS contacted [facility] @ [phone] in [place], [place] as pt had her med filled from them in the past when she stayed @ the [facility]. Per t/c with [facility], they will contact [facility] to request that the meds order be transferred to [facility]. [facility] pharmacist indicated that she would not be able to fill any meds that are classified as a controlled substance as pt had not picked up the meds from the original prescription, so doctor will need to send [facility] a new order for any controlled substance. Pt is prescribed Clonazepam. SS sent attending physician message requesting that he send the script for Clonazepam to [facility] in [place], [place]. SS faxed pt's labs & insurance verification to [facility] @ . Plan: Pt discharging, [facility] will deliver her meds to the the [facility] once they receive all orders. Lola Galvan LCSW Addendum: 02/09/20 at 0942 by Lola COUCH Amended: Links added.
== END 2020-02-09 08:50 | disposition short-term general hospital (02) | DRG 750 ==
LOC: ADULT MH 13:24 → UNDOADMIN 13:24 → UNDODISIN 01-06 07:19 → ADULT MH 01-06 16:24
PROVIDERS: ADMIT Psychiatry & Neurology Psychiatry; ATTEND Psychiatry & Neurology Psychiatry
PROC: 3E0234Z Introduction of Serum, Toxoid and Vaccine into Muscle, Percutaneous Approach (ICD-10-PCS; principal; 2020-01-07)
DX: F25.9 Schizoaffective disorder, unspecified (principal); E03.9 Hypothyroidism, unspecified; F12.90 Cannabis use, unspecified, uncomplicated; F17.210 Nicotine dependence, cigarettes, uncomplicated; R09.89 Other specified symptoms and signs involving the circulatory and respiratory systems; K59.00 Constipation, unspecified; N32.81 Overactive bladder; G89.29 Other chronic pain; R25.1 Tremor, unspecified; M54.9 Dorsalgia, unspecified; J11.1 Influenza due to unidentified influenza virus with other respiratory manifestations; F31.9 Bipolar disorder, unspecified; F42.9 Obsessive-compulsive disorder, unspecified; F90.9 Attention-deficit hyperactivity disorder, unspecified type; Z23 Encounter for immunization; Z79.899 Other long term (current) drug therapy
CPT/HCPCS: 36415; 72040; 72070; 72100; 74018; 80053; 80061; 81025; 83036; 84146; 84443; 85025; 87081; 87502; 87503; 90732; 93005; 99285

== ENCOUNTER 2023-04-08 12:33 | Emergency (ER) | payer MEDICAID ==
[~2023-04-08] VITALS: Ht 160 cm; Wt 101.6 kg
[~2023-04-08 12:33] MED LIST changes: +BENZ1TAB78 PO; +CHOL100046 PO; +CITA-124 PO; +CLON0.252 PO; +CLOZ100T13 PO; +CLOZ25TA12 PO; -CLOZ50TA PO; -DOCU-148 PO; -FLUV50TA3 PO; +LEVO50TA8 PO; +OXYB5TAB16 PO; +PROP20TA6 PO; -TOP100T PO
[2023-04-08 13:24] LABS: BASOPHILS # (AUTO) 0.1 X10'3 (0-0.2); BASOPHILS % (AUTO) 0.4 % (0-1); EOSINOPHILS % (AUTO) 0.2 % (0-6); HEMATOCRIT 43.1 % (35.0-45.0); HEMOGLOBIN 14.2 g/dl (12.0-16.0); LYMPHOCYTES # (AUTO) 2.7 X10'3 (1.1-4.8); LYMPHOCYTES % (AUTO) 22.1 % (21-51); MEAN CORPUSCULAR HEMOGLOBIN 30.7 PG (27.0-31.0); MEAN CORPUSCULAR HGB CONC 32.9 g/dL (33.0-36.5); MEAN CORPUSCULAR VOLUME 93.4 FL (78-98); MEAN PLATELET VOLUME 7.5 FL (7.4-10.4); MONOCYTES # (AUTO) 0.7 X10'3 (0-0.9); NEUTROPHILS # (AUTO) 8.9 X10'3 (1.8-7.7); NEUTROPHILS % (AUTO) 71.3 % (42-75); PLATELET COUNT 300 X10'3 (140-440); RED BLOOD COUNT 4.61 X10'6 (4.20-5.60); RED CELL DISTRIBUTION WIDTH 13.4 % (11.5-14.5); WHITE BLOOD COUNT 12.4 X10'3 (4.5-11.0)
[2023-04-08 13:36] LABS: ALANINE AMINOTRANSFERASE 15 U/L (12-78); ALBUMIN 3.6 G/DL (3.4-5.0); ALBUMIN/GLOBULIN RATIO 0.8 (1.1-1.5); ALKALINE PHOSPHATASE 121 IU/L (46-116); ANION GAP 12 (8-16); ASPARTATE AMINO TRANSFERASE 15 U/L (10-37); BILIRUBIN,TOTAL 0.5 MG/DL (0.1-1.0); BLOOD UREA NITROGEN 6 MG/DL (7-18); BUN/CREATININE RATIO 7.9 (10.0-20.0); CHLORIDE 104 MMOL/L (99-107); CREATININE 0.76 MG/DL (0.40-0.90); GLUCOSE 98 MG/DL (70-104); POTASSIUM 3.9 MMOL/L (3.5-5.1); SODIUM 140 MMOL/L (135-145); TOTAL CARBON DIOXIDE 24.2 MMOL/L (24-32); eGFR 90 ML/MIN
[2023-04-08 13:43] LABS: ETHANOL < 0.010 GM/DL (0.0-0.010)
[2023-04-08 14:27] LABS: URINE HCG NEGATIVE (NEG)
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
[2023-04-08 14:53] LABS: URINE AMPHETAMINE SCREEN NEGATIVE (Neg); URINE BARBITUATE SCREEN NEGATIVE (Neg); URINE BENZODIAZEPINES SCREEN NEGATIVE (Neg); URINE CANNABINOID SCREEN NEGATIVE (Neg); URINE COCAINE SCREEN NEGATIVE (Neg); URINE METHADONE SCREEN NEGATIVE (Neg); URINE OPIATE SCREEN NEGATIVE (Neg); URINE PHENCYCLIDINE SCREEN NEGATIVE (Neg)
--- NOTE | 2023-04-08 15:56 | NUR ---
Patient sleeping on her left side. No distress observed. Continue to monitor.
--- NOTE | 2023-04-08 17:40 | NUR ---
Patient continues to sleep on her left side. No distress observed. Continue to monitor.
--- NOTE | 2023-04-08 17:55 | NUR ---
RN called [facility] [phone]. Spoke to staff who are supposed to fax us patient's meds. Continue to monitor.
[2023-04-08] MEDS ORDERED: CITA20TA28 PO (18:45)
[2023-04-08] MEDS ORDERED: LAMO100T2 PO (18:45)
[2023-04-08] MEDS ORDERED: CLOZ100T68 PO (18:45)
[2023-04-08] MEDS ORDERED: CLON0.5T23 PO (18:45)
[2023-04-08] MEDS ORDERED: PROP10TA10 PO (18:45)
[2023-04-08] MEDS ORDERED: LEVO50CA4 PO (18:45)
[2023-04-08] MEDS ORDERED: OXYB5TAB16 PO (18:45)
[2023-04-08] MEDS ORDERED: BENZ1TAB93 PO (18:45)
[2023-04-08] MEDS: lamoTRIgine 100mg tablet PO SCH (21:05)
[2023-04-08] MEDS: benztropine 1mg tablet PO SCH (21:05)
--- NOTE | 2023-04-08 21:18 | NUR ---
Pt sleeping in bed since start of shift. Awaiting some meds from pharmacy before waking her.
--- NOTE | 2023-04-08 22:10 | NUR ---
Woke pt up to give meds pt sleepy cooperative with taking meds and went imediatly back to sleep.
[2023-04-08] MEDS: clozapine 100mg tablet PO SCH (22:25)
--- NOTE | 2023-04-08 23:14 | NUR ---
Pt sleeping at this time.
--- NOTE | 2023-04-09 06:30 | NUR ---
Received pt. sleeping in bed, rr are even and unlabored.
[2023-04-09 07:12] LABS: COLOR,URINE YELLOW (Yellow); GLUCOSE, URINE NEGATIVE (Neg); KETONES,URINE NEGATIVE (Neg); LEUKOCYTE ESTERASE ,URINE MODERATE (Neg); NITRITES, URINE NEGATIVE (Neg); OCCULT BLOOD,URINE LARGE (Neg); PROTEIN,URINE TRACE mg/dl (Neg); UROBILINOGEN,URINE 0.2 E.U/dL (0.2-1.0)
[2023-04-09 07:14] LABS: CLARITY,URINE SLIGHTLY CLOUDY (Clear); UA COLLECTION TYPE CLN CATCH MIDSTREAM
[2023-04-09 07:22] LABS: BACTERIA,URINE 1+ /HPF (Neg); MUCUS STRANDS FEW /LPF (Neg); RBC,URINE TNTC /HPF (0-2); SQUAMOUS EPITHELIAL CELL,UR MODERATE /LPF (FEW); WBC,URINE TNTC /HPF (0-4)
[2023-04-09 07:23] LABS: TRANSITIONAL EPI CELLS,URINE MODERATE /HPF
[2023-04-09] MEDS: levoTHYROXINE 25mcg tablet PO SCH (07:23)
[2023-04-09] MEDS: clonazePAM 0.5mg tablet PO SCH ×2 (07:55→20:47)
[2023-04-09] MEDS: lamoTRIgine 100mg tablet PO SCH ×2 (07:55→20:47)
[2023-04-09] MEDS: citalopram 20mg tablet PO SCH (07:56)
[2023-04-09] MEDS: oxybutynin 5mg tablet PO SCH (07:56)
[2023-04-09] MEDS: clozapine 100mg tablet PO SCH ×2 (07:56→20:47)
[2023-04-09] MEDS: benztropine 1mg tablet PO SCH ×2 (07:56→20:47)
--- NOTE | 2023-04-09 08:30 | NUR ---
Pt. sat up to eat breakfast and a mental health assessment was completed at bedside. Pt. had a tearful episode and talks in a circumstantial and hyper verbal manner about her sexuality, wanting a boyfriend, various relationships she has had, and missing her family. Pt. appears to moapa back to the statement, "I'm working on my sexuality, and I'm confused." This quality analyst/technical writer provided active listening and positive encouragement with effectiveness, pt. requires some verbal redirection. When questioned any current S/I, pt. denies this and states, "I'm just a little depressed." She endorses a history of cutting and cheeking her medications. Pt. denies any current A/V/[place], but endorses some thoughts that random others may want to hurt her. Pt. also makes what appear to be bizarre delusional statements at intervals.
[2023-04-09] MEDS ORDERED: cephalexin 250mg capsule PO SCH (08:35)
--- NOTE | 2023-04-09 08:36 | NUR ---
Pt. has a urinary tract infection per urine lab results. Pt. also reports burning and frequency of urination. This was endorsed to Dr. Poole and an order for Keflex 500mg TID was obtained.
[2023-04-09] MEDS ORDERED: cephalexin 500mg capsule PO ONE (09:25)
[2023-04-09] MEDS: propranolol 10mg tablet PO PRN ×2 (09:30→16:55)
--- NOTE | 2023-04-09 09:30 | NUR ---
Pt. appears restless and makes multiple requests from staff to change her clothing and help to perform various ADLs which she is able to perform independently. She requires redirection from staff at intervals. Pt. requested PRN Propranolol for anxiety, this medication was administered with effectiveness.
--- NOTE | 2023-04-09 10:33 | NUR ---
Pt. is laying in bed awake at this time, no s/s of distress noted.
--- NOTE | 2023-04-09 12:10 | NUR ---
Pt. is sitting up eating lunch at this time.
[2023-04-09] MEDS: cephalexin 500mg capsule PO SCH ×2 (13:01→20:47)
--- NOTE | 2023-04-09 13:19 | NUR ---
Pt. is on the telephone at this time.
--- NOTE | 2023-04-09 15:46 | NUR ---
Breaking RN. Pt. awake and sitting up in bed watching TV. Pt. in no apparent distress.
--- NOTE | 2023-04-09 16:23 | NUR ---
Pt. is laying in bed watching TV at this time.
--- NOTE | 2023-04-09 17:06 | NUR ---
Pt. reported anxiety, PRN Propranolol was administered, will continue to monitor.
--- NOTE | 2023-04-09 18:10 | NUR ---
Pt. is in bed watching TV at this time.
--- NOTE | 2023-04-09 18:18 | NUR ---
Patient awake in bed and watching T.V. No distress observed. Continue to monitor.
--- NOTE | 2023-04-09 20:05 | NUR ---
Patient watching T.V. Patient states she has felt suicidal today. Patient wants to talk about her sexual problem. RN listened for a little while but patient does not listen and the converstation seems to go no where. Continue to monitor.
--- NOTE | 2023-04-09 21:58 | NUR ---
Patient continues to watch T.V. No distress observed. Continue to monitor.
--- NOTE | 2023-04-10 00:05 | NUR ---
Patient sleeping on her left side. No distress observed. Continue to monitor.
--- NOTE | 2023-04-10 00:40 | NUR ---
At 0025 Patient asked Tech for something to sleep. RN walked over to patient about 10 minutes later to ask what she takes to help her sleep. Patient was laying on her left side lightly snoring. RN did attempt to ask her but she didn't wake up. Continue to monitor.
--- NOTE | 2023-04-10 02:11 | NUR ---
Patient sleeping. No distress observed. Continue to monitor.
--- NOTE | 2023-04-10 03:45 | NUR ---
Patient continues to sleep. No distress observed. Continue to monitor.
--- NOTE | 2023-04-10 04:17 | NUR ---
Patient talking to Tech advising patient that patient is uncomfortable with the females at the nurses station. Tech advises patient to try to get some sleep. Patient verbalized understanding. Continue to monitor.
--- NOTE | 2023-04-10 05:26 | NUR ---
Patient awake and moving around in bed. No distress observed at this time. Continue to monitor.
--- NOTE | 2023-04-10 05:57 | NUR ---
Patient awake and reclining in bed. No distress observed. Continue to monitor.
--- NOTE | 2023-04-10 06:30 | NUR ---
Patient is sleeping in bed at this time. No acute distress, bed locked/ lowest position, q15 rounds. Will CTM.
[2023-04-10] MEDS: levoTHYROXINE 25mcg tablet PO SCH (07:00)
[2023-04-10] MEDS: oxybutynin 5mg tablet PO SCH (08:27)
[2023-04-10] MEDS: clonazePAM 0.5mg tablet PO SCH (08:27)
[2023-04-10] MEDS: cephalexin 500mg capsule PO SCH ×2 (08:27→13:00)
[2023-04-10] MEDS: citalopram 20mg tablet PO SCH (08:27)
--- NOTE | 2023-04-10 08:30 | NUR ---
Patient has been sleeping in bed at this time. Awoke the pt to administer meds, compliant with taking PO medications. No acute distress, bed locked/ lowest position, q15 rounds. Will CTM.
[2023-04-10] MEDS: lamoTRIgine 100mg tablet PO SCH (08:32)
[2023-04-10] MEDS: benztropine 1mg tablet PO SCH (08:32)
[2023-04-10] MEDS: clozapine 100mg tablet PO SCH (08:32)
--- NOTE | 2023-04-10 10:30 | NUR ---
Patient is sleeping in bed at this time. No acute distress, bed locked/ lowest position, q15 rounds. Will CTM.
--- NOTE | 2023-04-10 12:30 | NUR ---
Patient is awake and used the BR. Sitting up in bed and eating lunch. Patient has been compliant today and has been keeping to her self most of the day. Watching tv as well. No acute distress.
--- NOTE | 2023-04-10 14:30 | NUR ---
Patient is watching tv & sleeping on and off in bed at this time. No acute distress, bed locked/ lowest position, q15 rounds. Will CTM. Has been very kept to self today and no innapropriate behavior so far on shift.
--- NOTE | 2023-04-10 15:54 | NUR ---
Priya Merlos called for nurse to nurse. They will present to physician.
[2023-04-10 16:50] VITALS: BP 123/82
--- NOTE | 2023-04-10 16:58 | NUR ---
Patient was picked up by [facility] and transported to their facility in [place], [place]. Patient had a bag of clothing that was transported/ along with paperwork that was appriopriate for transportation. Patient was compliant most of the day, and had good PO intake of nutrition along with tolerating her meds well. No acute distress when leaving our facility, ambulating normal. VS WNL. No suicidal ideation or self harm observed, pt denied.
== END 2023-04-10 16:30 ==
LOC: ER 12:34
DX: F25.9 Schizoaffective disorder, unspecified (principal); Z20.822 Contact with and (suspected) exposure to COVID-19; F31.9 Bipolar disorder, unspecified; F12.90 Cannabis use, unspecified, uncomplicated; Z73.6 Limitation of activities due to disability; Z56.0 Unemployment, unspecified
CPT/HCPCS: 36415; 80053; 80305; 80320; 81001; 81025; 84443; 85025; 87077; 87088; 87186; 87811; 99285